=== PATIENT | female | born 1955 | race Caucasian/White ===

== ENCOUNTER → 2019-12-10 10:36 | Outpatient (CLI) | payer BC, SELFPAY ==
--- NOTE | ~2019-12-10 | US_ITS ---
EXAMINATION: US venous doppler LE RT DATE: 12/10/2019 10:53 INDICATION: Right lower limb pain. TECHNIQUE: Grayscale ultrasound images without and with compression and Doppler ultrasound images of the right lower extremity veins were obtained. COMPARISON: Ultrasound 08/02/2011 FINDINGS: The visualized portions of right common femoral vein, profunda (deep) femoral vein, femoral vein, pop liteal vein, peroneal veins, posterior tibial veins, and greater saphenous vein outflow are patent. IMPRESSION: 1. No deep venous thrombosis. Reviewed, dictated and finalized at location B.
== END ==
PROVIDERS: PCP Family Medicine; Visit Provider Nurse Practitioner Family
DX: M79.606 Pain in leg, unspecified (principal); M79.89 Other specified soft tissue disorders
CPT/HCPCS: 93971

== ENCOUNTER → 2020-09-12 06:31 | Outpatient (CLI) | payer MEDICARE, SELFPAY ==
[2020-09-12 20:07] LABS: SARS-CoV-2 RNA PCR Negative
== END ==
PROVIDERS: PCP Family Medicine; Visit Provider Family Medicine
DX: R09.89 Other specified symptoms and signs involving the circulatory and respiratory systems (principal); Z20.822 Contact with and (suspected) exposure to COVID-19
CPT/HCPCS: C9803; U0003; U0005

== ENCOUNTER 2020-09-24 11:25 | Emergency (ER) | payer MEDICARE, SELFPAY ==
--- NOTE | 2020-09-24 11:41 | ED.EXTPRO ---
HPI - Extremity Problem General Chief complaint: Extremity Problem,Nontraumatic Stated complaint: right leg Time Seen by Provider: 09/24/20 11:41 Source: patient Mode of arrival: ambulatory Limitations: no limitations History of Present Illness HPI Narrative: Anjali Betts is a 65 yo female with a PMH hypertension, fibromyalgia, GERD, high cholesterol, [facility] because of right leg pain that started heel and goes up to her thigh that she believes is related to the course of Levaquin that she is put on for bronchitis. Bilateral foot swelling that is chronic. States it started after completing Levaquin prescription Related Data Home Medications Medication Instructions Recorded Confirmed milnacipran [Savella] 25 mg TID 09/24/20 09/24/20 Allergies Allergy/AdvReac Type Severity Reaction Status Date / Time Cephalosporins Allergy Mild Rash Verified 09/12/20 09:15 Penicillins Allergy Mild RASH Verified 09/12/20 09:15 amoxicillin Allergy Unknown Unknown Verified 09/12/20 09:15 celecoxib Allergy Unknown Unknown Verified 09/12/20 09:15 clindamycin Allergy Unknown Unknown Verified 09/12/20 09:15 erythromycin base Allergy Unknown Unknown Verified 09/12/20 09:15 indomethacin Allergy Unknown Unknown Verified 09/12/20 09:15 iodine Allergy Unknown Unknown Verified 09/12/20 09:15 Sulfa (Sulfonamide Allergy Unknown Unknown Verified 09/12/20 09:15 Antibiotics) sulfanilamide Allergy Unknown Unknown Verified 09/12/20 09:15 topiramate Allergy Unknown Confusion Verified 09/12/20 09:15 CEFONICID SODIUM Allergy Severe SOB, Uncoded 09/12/20 09:15 FAINTING, JACQUELINE Contrast Media Allergy Mild MAKES HER Uncoded 09/12/20 09:15 SICK Review of Systems Review of Systems: Narrative: CONSTITUTIONAL: Denies fever, chills, sweats. EYES: Denies visual changes, redness, discharge. ENT: Denies rhinorrhea, congestion, sore throat, otalgia. CARDIOVASCULAR: Denies chest pain, palpitations, edema. RESPIRATORY: Denies dyspnea, wheezing, cough GASTROINTESTINAL: Denies abdominal pain, nausea, vomiting, diarrhea. GENITOURINARY: Denies dysuria, hematuria, abnormal discharge SKIN: Denies rash or itching. NEUROLOGIC: Denies numbness, or focal weakness. PSYCHIATRIC: Denies anxiety or depression. Pain in back of right leg that starts at the Achilles all the way up to the thigh that she assumes is related to her Levaquin use; she also has a tiny speck of a keloid looking skin lesion on the back of her right knee that she wanted looked at PMFSH Past Medical History Medical History Body mass index (BMI) of 40.1 to 44.9 in adult Essential hypertension Fibromyalgia Morbid (severe) obesity due to excess calories Family History Family History Mother Family history of elevated blood lipids Family history of diabetes mellitus in first degree relative Family history of heart disease in male family member before age 55 Family history of arthritis Acute myocardial infarction Father Family history of malignant melanoma Family history of heart disease in male family member before age 55 Family history of Parkinson's disease Sibling Acute myocardial infarction Diabetes mellitus Hypertension Social History Social History Second hand tobacco smoke exposure: Yes Alcohol intake: current Substance use: never Substance use type: does not use 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 There is no relevant family history pertinent to the presenting complaint. Exam Narrative: Exam Narrative: GENERAL: This is a well-nourished, well-developed patient, in mild distress. HEAD: normo
[2020-09-24 11:42] VITALS: BP 142/88; PULSE 93; RESP 20; TEMP 36.9; O2SAT 100
== END 2020-09-24 12:12 | disposition home or self-care (01) ==
PROVIDERS: Emergency Provider Nurse Practitioner; PCP Family Medicine
DX: M79.604 Pain in right leg (principal); I10 Essential (primary) hypertension; M79.7 Fibromyalgia; E66.01 Morbid (severe) obesity due to excess calories; Z68.41 Body mass index [BMI] 40.0-44.9, adult; I25.10 Atherosclerotic heart disease of native coronary artery without angina pectoris; E78.00 Pure hypercholesterolemia, unspecified; K21.9 Gastro-esophageal reflux disease without esophagitis
CPT/HCPCS: 99213; G0463

== ENCOUNTER → 2020-12-01 01:33 | Outpatient (CLI) | payer MEDICARE, SELFPAY ==
[2020-12-02 00:16] LABS: SARS-CoV-2 RNA PCR Negative
== END ==
PROVIDERS: PCP Family Medicine; Visit Provider Nurse Practitioner Family
DX: Z20.822 Contact with and (suspected) exposure to COVID-19 (principal); R09.89 Other specified symptoms and signs involving the circulatory and respiratory systems
CPT/HCPCS: C9803; U0003; U0005

== ENCOUNTER 2021-03-21 11:13 | Emergency (ER) | payer MEDICARE, SELFPAY ==
[2021-03-21] VITALS (23 sets, daily range): BP systolic 119–161; BP diastolic 71–94; PULSE 78–89; RESP 16–18; TEMP 36.6–36.8; O2SAT 97–100
--- NOTE | ~2021-03-21 | XR_ITS ---
EXAMINATION: XR chest 2V DATE: 03/21/2021 11:50 INDICATION: Chest heaviness. TECHNIQUE: Frontal and lateral views of the chest were obtained. COMPARISON: Chest 2 views 06/01/2018 FINDINGS: The chest demonstrates clear lungs without pneumonia, pleural effusion, or pneumothorax. Th e heart size is normal. Surgical clips in the right upper quadrant are likely from cholecystectomy. IMPRESSION: 1. No acute cardiopulmonary disease. Reviewed, dictated and finalized at location B. LIFE PHOTOGRAPHER
--- NOTE | 2021-03-21 11:17 | ECG_ITS ---
Measurements Intervals [place] Rate: 78 P: 23 OR: 168 QRS: -6 QRSD: 98 T: 4 QT: 371 QTc: 424 Interpretive Statements SINUS RHYTHM INCOMPLETE RIGHT BUNDLE BRANCH BLOCK DELAYED PRECORDIAL R/S TRANSITION LOW QRS VOLTAGE IN PRECORDIAL LEADS BORDERLINE ECG Electronically Signed On 03-21-2021 16:07:22 CONTENT ENGINEER by Portillo Valdes D.O.
[2021-03-21 11:43] LABS: Basophils Absolute Auto 0.1 K/mm3 (0.0-0.1); Basophils Percent Auto 0.6 % (0.2-1.2); Eosinophils Absolute Auto 0.1 K/mm3 (0-0.3); Eosinophils Percent Auto 1.1 % (0-4.4); Hematocrit 42.2 % (37.0-47.0); Immature Granulocyte Absolute 0.05 K/mm3 (0.00-0.031); Immature Granulocyte Percent A 0.4 % (0-0.5); Lymphocytes Absolute Auto 6.26 K/mm3 (0.9-3.2); Lymphocytes Percent Auto 52.6 % (18.3-44.2); Mean Corpuscular HGB Conc 33.2 g/dl (32-36); Mean Corpuscular Hemoglobin 29.2 pg (26-34); Mean Corpuscular Volume 87.9 fl (80-100); Mean Platelet Volume 8.8 fl (7.4-10.4); Monocytes Absolute Auto 0.8 K/mm3 (0.1-0.6); Monocytes Percent Auto 6.5 % (2.6-8.5); Neutrophils Absolute Auto 4.6 K/mm3 (1.3-6.7); Neutrophils Percent Auto 38.8 % (45.5-73.1); Platelet Count Result 382 k/mm3 (150-375); Red Cell Distribution Width 12.9 % (11.5-14.5); White Blood Count 11.9 K/mm3 (4.5-10.0)
[2021-03-21 11:55] LABS: Alanine Aminotransferase 24 U/L (4-35); Albumin Level 4.5 g/dL (3.5-5.1); Alkaline Phosphatase 82 U/L (38-126); Anion Gap 10 mmol/L (8-16); Aspartate Amino Transferase 27 U/L (14-36); Bilirubin,Total 0.7 mg/dL (0.2-1.3); Blood Urea Nitrogen 18 mg/dL (7-17); Calcium 9.6 mg/dL (8.4-10.2); Carbon Dioxide 25 mmol/L (22-30); Chloride 100 mmol/L (98-107); Estimated Glomerular Filt Rate > 60; Glucose 150 mg/dL (65-110); INR 0.9; Lipase 166 U/L (23-300); Potassium 4.2 mmol/L (3.4-5.0); Prothrombin Time 11.7 Seconds (11.1-14.7); Sodium 135 mmol/L (137-145)
[2021-03-21 11:56] LABS: Partial Thromboplastin Time 29.1 SECONDS (22.3-36.8)
[2021-03-21 12:07] LABS: Troponin I < 0.012 ng/mL (0.000-0.034)
--- NOTE | 2021-03-21 12:49 | ED.GENADULT ---
HPI - General Adult General Chief complaint: Chest Pain Stated complaint: chest heaviness, high bp Time Seen by Provider: 03/21/21 12:13 Source: patient and RN notes reviewed History of Present Illness HPI narrative: Patient is a 66 y/o female complaining of mild chest tightness since yesterday. She states that her tightness in located in mid sternal area with some radiation to her back. There is no known alleviating or exacerbating factor. She has no cough, SOB, fever or leg swelling. She has been having right shoulder pain with radiation to right arm for 1 week. She was seen by her PCP 1 week for shoulder/arm pain and given steroids. She had appointment today and was note to hypertension with SBP in 180s in office. She was then sent to ED for further evaluation. Related Data Allergies Allergy/AdvReac Type Severity Reaction Status Date / Time Penicillins Allergy Mild RASH Verified 03/21/21 12:36 amoxicillin Allergy Unknown Unknown Verified 03/21/21 12:36 celecoxib Allergy Unknown Unknown Verified 03/21/21 12:36 clindamycin Allergy Unknown Unknown Verified 03/21/21 12:36 erythromycin base Allergy Unknown Unknown Verified 03/21/21 12:36 indomethacin Allergy Unknown Unknown Verified 03/21/21 12:36 iodine Allergy Unknown Unknown Verified 03/21/21 12:36 Sulfa (Sulfonamide Allergy Unknown Unknown Verified 03/21/21 12:36 Antibiotics) sulfanilamide Allergy Unknown Unknown Verified 03/21/21 12:36 topiramate Allergy Unknown Confusion Verified 03/21/21 12:36 ciprofloxacin [From Cipro] AdvReac Severe tendonopath Verified 03/21/21 12:36 y levofloxacin AdvReac Severe tendonopath Verified 03/21/21 12:36 y CEFONICID SODIUM Allergy Severe SOB, Uncoded 03/21/21 12:36 FAINTING, JACQUELINE Contrast Media Allergy Mild MAKES HER Uncoded 03/21/21 12:36 SICK Review of Systems Constitutional: Constitutional: Denies chills, Denies fever(s), Denies headache(s) and Denies weakness Eyes: Eyes: Denies blurry vision ENT: Denies headache(s) and Denies neck pain Cardiovascular: Cardiovascular: Reports chest pain and Denies dyspnea Respiratory: Respiratory: Denies cough and Denies dyspnea Gastrointestinal: Gastrointestinal: Denies abdominal pain, Denies diarrhea, Denies nausea and Denies vomiting Genitourinary: Genitourinary: Denies hematuria and Denies dysuria Musculoskeletal: Musculoskeletal: Reports as per HPI, Denies back pain, Denies neck pain and Reports other (right shoulder pain and arm pain) Neurologic: Denies headache(s) and Denies weakness PMFSH Past Medical History Medical History Body mass index (BMI) of 40.1 to 44.9 in adult Essential hypertension Fibromyalgia Morbid (severe) obesity due to excess calories Family History Family History Mother Family history of elevated blood lipids Family history of diabetes mellitus in first degree relative Family history of heart disease in male family member before age 55 Family history of arthritis Acute myocardial infarction Father Family history of malignant melanoma Family history of heart disease in male family member before age 55 Family history of Parkinson's disease Sibling Acute myocardial infarction Diabetes mellitus Hypertension Social History Social History Smoking status: Never smoker Second hand tobacco smoke exposure: Yes Alcohol intake: current Substance use: never Substance use type: does not use 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 Patient feels well. She has no chest pain at this time. I offered patient possible admission for observation and further work up. She declined. She wants to be discharged and follow up with her PCP for outpatien
--- NOTE | 2021-03-21 13:05 | PC.NURSE ---
Called lab to add on D-Dimer
[2021-03-21 13:22] LABS: D Dimer 0.21 ug/mL (<0.48)
[2021-03-21 14:57] LABS: Troponin I < 0.012 ng/mL (0.000-0.034)
== END 2021-03-21 16:10 | disposition home or self-care (01) ==
PROVIDERS: Emergency Medicine; Emergency Provider Emergency Medicine; PCP Family Medicine
DX: R07.89 Other chest pain (principal); I10 Essential (primary) hypertension; M79.7 Fibromyalgia; E66.01 Morbid (severe) obesity due to excess calories; Z68.42 Body mass index [BMI] 45.0-49.9, adult; Z77.22 Contact with and (suspected) exposure to environmental tobacco smoke (acute) (chronic); I45.10 Unspecified right bundle-branch block
CPT/HCPCS: 36415; 71046; 80053; 83690; 84484; 85025; 85380; 85610; 85730; 93005; 99284

== ENCOUNTER → 2021-03-26 11:12 | Outpatient (CLI) | payer MEDICARE, SELFPAY ==
--- NOTE | ~2021-03-26 | XR_ITS ---
EXAMINATION: XR_CERV2-3V_CR DATE: 03/26/2021 11:38 INDICATION: Anesthesia of skin. Right upper limb pain. TECHNIQUE: 3 views of cervical spine were obtained. COMPARISON: None. FINDINGS: There is 11 degrees levoscoliosis of cervicothoracic spine. There is 2 mm anterolisthesis o f C5 on C6. Vertebral body heights are normal. There is interbody fusion at C4-C5. There is mildly de creased disc height at C3-C4, C5-C6, and C6-C7. There is multilevel facet joint osteoarthritis, sever e bilaterally at C5-C6 and C6-C7. There is mild central canal stenosis at C3-C4, C4-C5, and C5-C6. No prevertebral soft tissue swelling. IMPRESSION: 1. Moderate cervical spondylosis. 2. Cervicothoracic levoscoliosis. Reviewed, dictated and finalized at location A. WINDER
== END ==
PROVIDERS: PCP Family Medicine; Visit Provider Physician Assistant Medical
DX: R20.0 Anesthesia of skin (principal); R20.2 Paresthesia of skin; M47.892 Other spondylosis, cervical region
CPT/HCPCS: 72040

== ENCOUNTER 2022-04-11 01:15 | Day surgery (SDC) | payer MEDICARE, SELFPAY ==
[2022-03-29 15:31] VITALS: BMI 42.3
--- NOTE | 2022-04-11 09:10 | WPDANESEPPF ---
Anes - Initial Pre Proc Eval Procedure: Operation Date: 04/11/22 11:30 Proposed Procedures p Screening Colonoscopy - Maksim Mireles MD Date/Time: 04/11/22 09:10 Surgeon: Maksim Mireles MD Pre Op Diagnosis: neoplasm screening Patient Data Age: 67 Gender: F Height: 1.5 m Weight: 95 kg Allergies Allergy/AdvReac Type Severity Reaction Status Date / Time Penicillins Allergy Mild RASH Verified 04/11/22 10:28 amoxicillin Allergy Unknown Unknown Verified 04/11/22 10:28 cefonicid Allergy Unknown Unknown Verified 04/11/22 10:28 celecoxib Allergy Unknown Unknown Verified 04/11/22 10:28 clindamycin Allergy Unknown Unknown Verified 04/11/22 10:28 erythromycin base Allergy Unknown Unknown Verified 04/11/22 10:28 indomethacin Allergy Unknown Unknown Verified 04/11/22 10:28 Iodinated Contrast Media Allergy Unknown Unknown Verified 04/11/22 10:28 iodine Allergy Unknown Unknown Verified 04/11/22 10:28 Sulfa (Sulfonamide Allergy Unknown Unknown Verified 04/11/22 10:28 Antibiotics) sulfanilamide Allergy Unknown Unknown Verified 04/11/22 10:28 topiramate Allergy Unknown Confusion Verified 04/11/22 10:28 ciprofloxacin [From Cipro] AdvReac Severe tendonopath Verified 04/11/22 10:28 y levofloxacin AdvReac Severe tendonopath Verified 04/11/22 10:28 y Home Medications Medication Instructions Recorded Confirmed Type omeprazole magnesium 20 mg 20 mg PO BID #180 caps 08/31/21 03/29/22 Rx capsule,delayed release (Acid Tag Stringer (omeprazole)) blood-glucose meter (Accu-Chek #1 ea 10/01/21 02/25/22 Rx Emilee Plus Meter) metoprolol succinate 100 mg 200 mg PO DAILY #180 tabs 12/11/21 03/29/22 Rx tablet,extended release 24 hr rosuvastatin 40 mg tablet (Crestor) 40 mg PO DAILY #90 tabs 12/11/21 03/29/22 Rx amlodipine 5 mg tablet (Norvasc) 5 mg PO DAILY #90 tabs 02/19/22 03/29/22 Rx blood sugar diagnostic (Accu-Chek #100 ea 02/25/22 02/25/22 Rx Emilee Plus test strips) empagliflozin 10 mg tablet 10 mg PO DAILY #90 tabs 02/25/22 03/29/22 Rx (Jardiance) lancets (Accu-Chek Softclix #100 ea 02/25/22 02/25/22 Rx Lancets) irbesartan 300 mg tablet 300 mg PO DAILY #90 tabs 04/04/22 04/11/22 Rx nabumetone 500 mg tablet 500 mg PO BID #180 tabs 04/04/22 04/11/22 Rx Patient hx anesthesia problems: none Family hx anesthesia problems: none Results Review: All pre-operative results and documents have been reviewed as part of the pre-operative evaluation. [facility] Past Medical History Medical History (Updated 04/11/22 @ 09:12 by Allen Summers MD) Anxiety Arthritis of both knees BMI 40.0-44.9, adult Body mass index (BMI) of 40.1 to 44.9 in adult Diabetes Essential hypertension Fibromyalgia Fibromyalgia Fibromyalgia Gastroesophageal reflux disease Morbid (severe) obesity due to excess calories Myocarditis Reactive airway disease Type 2 diabetes mellitus without complication Family History Family History Mother Family history of elevated blood lipids Family history of diabetes mellitus in first degree relative Family history of heart disease in male family member before age 55 Family history of arthritis Acute myocardial infarction Father Family history of malignant melanoma Family history of heart disease in male family member before age 55 Family history of Parkinson's disease Sibling Acute myocardial infarction Diabetes mellitus Hypertension Social History Social History Smoking status: Never smoker Second hand tobacco smoke exposure: Yes Alcohol intake: current Drinks per week: 0 Alcohol use details: seldom Substance use: never Substance use type: does not use Living arrangements: with family 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
[2022-04-11 10:30] VITALS: BP 147/82; PULSE 64; RESP 20; TEMP 36.4; O2SAT 100
[2022-04-11] MEDS: LACTATED RINGERS 1,000 ML 150 ML IV CONT (10:39)
[2022-04-11 10:47] LABS: Glucose Point of Care 105 mg/dl (65-105)
--- NOTE | 2022-04-11 11:05 | PM.HPGS ---
History of Present Illness History of Present Illness Consent: Risks, benefits, and alternatives have been discussed and questions answered. Patient agrees to proceed with procedure. Chief complaint: neoplasm screening Narrative: Anjali Betts is a 67 year old female Presents for screening colonoscopy. Patient's current weight appetite and bowel movements are normal. Patient denies abdominal pain. She has had no bleeding. It has been sometime since last screening exam. Review of Systems Review of Systems: Review of systems noncontributory. [facility] Past Medical History Medical History (Updated 04/11/22 @ 11:06 by Maksim Mireles MD) Anxiety Arthritis of both knees BMI 40.0-44.9, adult Body mass index (BMI) of 40.1 to 44.9 in adult Diabetes Essential hypertension Fibromyalgia Fibromyalgia Fibromyalgia Gastroesophageal reflux disease Morbid (severe) obesity due to excess calories Myocarditis Reactive airway disease Type 2 diabetes mellitus without complication Family History Family History Mother Family history of elevated blood lipids Family history of diabetes mellitus in first degree relative Family history of heart disease in male family member before age 55 Family history of arthritis Acute myocardial infarction Father Family history of malignant melanoma Family history of heart disease in male family member before age 55 Family history of Parkinson's disease Sibling Acute myocardial infarction Diabetes mellitus Hypertension Social History Social History Smoking status: Never smoker Second hand tobacco smoke exposure: Yes Alcohol intake: current Drinks per week: 0 Alcohol use details: seldom Substance use: never Substance use type: does not use Living arrangements: with family 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 Gender identity (if verbalized by the patient): Female Sexual Orientation (if Verbalized by the Patient): Straight or Heterosexual Spiritual care concerns: No Meds Home Medications and Allergies Home Medications Medication Instructions Recorded Confirmed Type omeprazole magnesium 20 mg 20 mg PO BID #180 caps 08/31/21 03/29/22 Rx capsule,delayed release (Acid Co Founder And President (omeprazole)) blood-glucose meter (Accu-Chek #1 ea 10/01/21 02/25/22 Rx Emilee Plus Meter) metoprolol succinate 100 mg 200 mg PO DAILY #180 tabs 12/11/21 03/29/22 Rx tablet,extended release 24 hr rosuvastatin 40 mg tablet (Crestor) 40 mg PO DAILY #90 tabs 12/11/21 03/29/22 Rx amlodipine 5 mg tablet (Norvasc) 5 mg PO DAILY #90 tabs 02/19/22 03/29/22 Rx blood sugar diagnostic (Accu-Chek #100 ea 02/25/22 02/25/22 Rx Emilee Plus test strips) empagliflozin 10 mg tablet 10 mg PO DAILY #90 tabs 02/25/22 03/29/22 Rx (Jardiance) lancets (Accu-Chek Softclix #100 ea 02/25/22 02/25/22 Rx Lancets) irbesartan 300 mg tablet 300 mg PO DAILY #90 tabs 04/04/22 04/11/22 Rx nabumetone 500 mg tablet 500 mg PO BID #180 tabs 04/04/22 04/11/22 Rx Allergies Allergy/AdvReac Type Severity Reaction Status Date / Time Penicillins Allergy Mild RASH Verified 04/11/22 10:28 amoxicillin Allergy Unknown Unknown Verified 04/11/22 10:28 cefonicid Allergy Unknown Unknown Verified 04/11/22 10:28 celecoxib Allergy Unknown Unknown Verified 04/11/22 10:28 clindamycin Allergy Unknown Unknown Verified 04/11/22 10:28 erythromycin base Allergy Unknown Unknown Verified 04/11/22 10:28 indomethacin Allergy Unknown Unknown Verified 04/11/22 10:28 Iodinated Contrast Media Allergy Unknown Unknown Verified 04/11/22 10:28 iodine Allergy Unknown Unknown Verified 04/11/22 10:28 Sulfa (Sulfonamide Allergy Unknown Unknown Verified 04/11/22 10:28 Antibiotics) sulfanilamide Allergy Unknown Unknown Verified 04/11/22 10:28 topiramate Allergy Unknown Confusion Verified 04/11/22 10:28
[2022-04-11 11:33] VITALS: BP 99/59; PULSE 64; RESP 20; O2SAT 99
[2022-04-11 11:43] VITALS: BP 106/65; PULSE 59; RESP 20; O2SAT 99
[2022-04-11 11:53] VITALS: BP 121/67; PULSE 61; RESP 17; O2SAT 99
== END 2022-04-11 12:03 | disposition home or self-care (01) ==
PROVIDERS: PCP Family Medicine; Visit Provider Internal Medicine Gastroenterology
PROC: 0DJD8ZZ Inspection of Lower Intestinal Tract, Via Natural or Artificial Opening Endoscopic (ICD-10-PCS; CPT 45378; principal; 2022-04-11 11:30)
DX: Z12.11 Encounter for screening for malignant neoplasm of colon (principal); K64.8 Other hemorrhoids; K57.30 Diverticulosis of large intestine without perforation or abscess without bleeding; I10 Essential (primary) hypertension; E11.9 Type 2 diabetes mellitus without complications; M79.7 Fibromyalgia; K21.9 Gastro-esophageal reflux disease without esophagitis; J45.909 Unspecified asthma, uncomplicated; F41.9 Anxiety disorder, unspecified; E66.01 Morbid (severe) obesity due to excess calories; Z68.41 Body mass index [BMI] 40.0-44.9, adult; Z79.84 Long term (current) use of oral hypoglycemic drugs
CPT/HCPCS: G0121; 82948; J2370; J2704; J7120

== ENCOUNTER → 2022-09-11 09:14 | Outpatient (CLI) | payer MEDICARE, SELFPAY ==
--- NOTE | ~2022-09-11 | MMUS_ITS ---
EXAMINATION: MM diagnostic day LT w philip, US breast LT limited HISTORY: Pain of the upper left breast TECHNIQUE: Craniocaudal, mediolateral, and mediolateral oblique 3-D tomosynthesis images of the left breast were performed and synthetic 2-D images were generated. CAD analysis was submitted and interpr eted. High resolution limited left breast ultrasound was performed. COMPARISON: 02/14/2022, 01/09/2021, 11/15/2019 BREAST PARENCHYMAL COMPOSITION: There are scattered areas of fibroglandular density. FINDINGS: MAMMOGRAPHIC FINDINGS: No suspicious mass, calcification, or architectural distortion are identified to suggest malignancy. There has been no suspicious interval change. No mammographic correlate is identified for the patient 's reported left breast pain. ULTRASOUND: There is no evidence of focal abnormal solid or cystic mass in the vicinity of the patient's reported left breast pain. IMPRESSION: 1. No specific mammographic or sonographic correlate is identified for the patient's reported left br east pain. Further evaluation at this time should be based on clinical assessment. Continued follow-u p physical examination is recommended. 2. Routine screening mammography is recommended. BI-RADS Category 1: Negative Reviewed, dictated and finalized at location A. IMPRESSION: 1. No specific mammographic or sonographic correlate is identified for the charlotte ent's reported left breast pain. Further evaluation at this time should be base d on clinical assessment. Continued follow-up physical examination is recommend ed. 2. Routine screening mammography is recommended. BI-RADS Category 1: Negative
== END ==
PROVIDERS: PCP Family Medicine; Visit Provider Obstetrics & Gynecology
DX: N64.4 Mastodynia (principal); N60.02 Solitary cyst of left breast
CPT/HCPCS: 76642; 77061; 77065; G0279

== ENCOUNTER 2023-01-17 11:51 | Outpatient (CLI) | payer MEDICARE, SELFPAY ==
[2023-01-17 13:08] LABS: Toxigenic C. Diff NEGATIVE (NEGATIVE)
== END 2023-01-17 11:52 | disposition home or self-care (01) ==
LOC: ANHLAB 11:53
PROVIDERS: PCP Family Medicine; Visit Provider Nurse Practitioner Family
DX: R19.7 Diarrhea, unspecified (principal)
CPT/HCPCS: 87045; 87177; 87209; 87427; 87449; 87493

== ENCOUNTER 2023-01-29 12:22 | Outpatient (CLI) | payer MEDICARE, SELFPAY ==
--- NOTE | ~2023-01-29 | XR_ITS ---
EXAM: XR abdomen/kub 1V DATE: 01/29/2023 12:51 HISTORY: Diarrhea X a few months . COMPARISON: None available. FINDINGS: Clear lung bases. Cholecystectomy clips. Normal bowel gas pattern. Enlarged liver. Pelvic phleboliths. Lumbar scoliosis. Moderate lumbar degenerative disc disease. Mild bilateral hip osteoart hritis. IMPRESSION: Hepatomegaly. No radiographic evidence of obstruction or ileus. Reviewed, dictated and finalized at location K.
== END 2023-01-29 12:23 | disposition home or self-care (01) ==
PROVIDERS: PCP Family Medicine; Visit Provider Nurse Practitioner Family
DX: R19.7 Diarrhea, unspecified (principal)
CPT/HCPCS: 74018

== ENCOUNTER 2023-02-07 11:10 | Outpatient (CLI) | payer MEDICARE, SELFPAY ==
--- NOTE | ~2023-02-07 | XR_ITS ---
Clinical Indication: Chest pressure PA and lateral views of the chest: Comparison: 03/21/2021 Findings: The lungs are clear, without evidence of focal consolidation or pleural effusion. Cardiome diastinal silhouette is within normal limits. Bones and soft tissues are unremarkable. Impression: Normal chest. Reviewed, dictated and finalized at location . Impression: Normal chest.
== END 2023-02-07 11:11 | disposition home or self-care (01) ==
LOC: ANHIMG 11:14
PROVIDERS: PCP Family Medicine; Visit Provider Nurse Practitioner Family
DX: R05.1 Acute cough (principal)
CPT/HCPCS: 71046

== ENCOUNTER → 2023-02-13 10:44 | Outpatient (CLI) | payer MEDICARE, SELFPAY ==
--- NOTE | ~2023-02-13 | US_ITS ---
US abdomen limited INDICATION: Hepatomegaly. PROCEDURE: Realtime right upper abdominal ultrasound. COMPARISON: No prior studies for comparison. FINDINGS: The pancreas is normal without focal mass or pancreatic ductal dilation. Liver echotexture is normal without focal mass or intrahepatic biliary dilatation. Liver is enlarged. There is normal directional flow in the portal vein. Gallbladder is surgically absent. Common bile duct measures 5 mm. No sonographic Ruvalcaba's sign. IMPRESSION: 1: Hepatomegaly. Reviewed, dictated and finalized at location A. IMPRESSION: 1: Hepatomegaly.
== END ==
PROVIDERS: PCP Family Medicine; Visit Provider Nurse Practitioner Family
DX: R16.0 Hepatomegaly, not elsewhere classified (principal)
CPT/HCPCS: 76705

== ENCOUNTER 2023-04-07 11:16 | Day surgery (SDC) | payer MEDICARE, SELFPAY ==
[2023-03-05 12:53] VITALS: BMI 38.5
--- NOTE | 2023-04-07 12:10 | PM.HPGS ---
History of Present Illness History of Present Illness Consent: Risks, benefits, and alternatives have been discussed and questions answered. Patient agrees to proceed with procedure. Chief complaint: Epigastric Pain, Gerd without Esophagitis Narrative: Anjali Betts is a 68 year old female Presents for EGD. Patient has episodes of forceful vomiting and epigastric pain. Symptoms are rather intense that occur every several months. Perhaps 3 or 4 times a year patient denies any bleeding. She is currently being treated for underlying acid reflux. Because of intermittent severe episodes of vomiting an EGD to. Patient denies any dysphagia. She has no weight loss. Recent colonoscopy was performed for screening was unremarkable. Patient presents today for EGD. Currently followed by nurse practitioner in the GI office. Review of Systems Review of Systems: Review of systems noncontributory. [facility] Past Medical History Medical History Anxiety Arthritis of both knees BMI 37.0-37.9, adult BMI 38.0-38.9,adult BMI 39.0-39.9,adult BMI 40.0-44.9, adult Body mass index (BMI) of 40.1 to 44.9 in adult COVID Diabetes Essential hypertension Fibromyalgia Fibromyalgia Gastroesophageal reflux disease Morbid (severe) obesity due to excess calories Myocarditis Reactive airway disease Type 2 diabetes mellitus without complication Surgical History Surgical History (Updated 02/26/23 @ 14:38 by JANE Alvarado) H/O breast augmentation H/O knee surgery Family History Family History Mother Family history of elevated blood lipids Family history of diabetes mellitus in first degree relative Family history of heart disease in male family member before age 55 Family history of arthritis Acute myocardial infarction Father Family history of malignant melanoma Family history of heart disease in male family member before age 55 Family history of Parkinson's disease Sibling Acute myocardial infarction Diabetes mellitus Hypertension Social History Social History (Updated 02/26/23 @ 14:40 by JANE Alvarado) Smoking status: Never smoker Second hand tobacco smoke exposure: Yes Alcohol intake: current Alcohol use details: seldom Substance use: never Substance use type: does not use Lack of Transportation: No Lack of Food: Never True Current Housing: I Have Housing Concerned About Future Housing: No Difficulty Paying Gas/Electric Bills: No Difficulty Paying for Meds: No Currently Unemployed: No Education: High School Diploma/GED Difficulty w/ Childcare or Family Care: No Living arrangements: with family Occupation/Education: retired 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 Gender identity (if verbalized by the patient): Female Sexual Orientation (if Verbalized by the Patient): Straight or Heterosexual Spiritual care concerns: No Meds Home Medications and Allergies Home Medications Medication Instructions Recorded Confirmed Type blood-glucose meter (Accu-Chek #1 ea 10/01/21 02/26/23 Rx Emilee Plus Meter) empagliflozin 10 mg tablet 10 mg PO DAILY #90 tabs 08/26/22 03/25/23 Rx (Jardiance) lancets (Accu-Chek Softclix #100 ea 09/02/22 02/26/23 Rx Lancets) blood sugar diagnostic (Accu-Chek #100 ea 09/05/22 02/26/23 Rx Guide test strips) omeprazole 40 mg capsule,delayed 40 mg PO BID #60 caps 12/16/22 03/25/23 Rx release amlodipine 5 mg tablet (Norvasc) 5 mg PO DAILY #90 tabs 02/09/23 03/25/23 Rx irbesartan 300 mg tablet 300 mg PO DAILY #90 tabs 02/09/23 03/25/23 Rx metoprolol succinate 100 mg 200 mg PO DAILY #180 tabs 02/09/23 03/25/23 Rx tablet,extended release 24 hr rosuvastatin 40 mg tablet (Crestor) 40 mg PO DAILY #90 tabs 02/09/23 03/25/23 Rx Allergies Allergy/AdvReac Type Severity Reaction Status Date
[2023-04-07 12:13] VITALS: BP 140/91; PULSE 69; RESP 16; TEMP 37.2; O2SAT 100
[2023-04-07] MEDS: LACTATED RINGERS 1,000 ML 150 ML IV CONT (12:27)
--- NOTE | 2023-04-07 13:05 | WPDANESEPPF ---
Anes - Initial Pre Proc Eval Procedure: Operation Date: 04/07/23 13:30 Proposed Procedures p Esophagogastroduodenoscopy - Maksim Mireles MD Date/Time: 04/07/23 13:05 Surgeon: Maksim Mireles MD Pre Op Diagnosis: Epigastric Pain, Gerd without Esophagitis Patient Data Age: 68 Gender: F Height: 1.5 m Weight: 84.4 kg Last Vital Signs Temp 37.2 C 04/07/23 12:13 Pulse 69 04/07/23 12:13 Resp 16 04/07/23 12:13 BP 140/91 H 04/07/23 12:13 Pulse Ox 100 04/07/23 12:13 O2 Del Method Room Air 04/07/23 12:13 Allergies Allergy/AdvReac Type Severity Reaction Status Date / Time metronidazole Allergy Intermediate Hives Verified 04/07/23 12:08 Penicillins Allergy Mild RASH Verified 04/07/23 12:08 amoxicillin Allergy Unknown Unknown Verified 04/07/23 12:08 cefonicid Allergy Unknown Unknown Verified 04/07/23 12:08 celecoxib Allergy Unknown Unknown Verified 04/07/23 12:08 clindamycin Allergy Unknown Unknown Verified 04/07/23 12:08 erythromycin base Allergy Unknown Unknown Verified 04/07/23 12:08 indomethacin Allergy Unknown Unknown Verified 04/07/23 12:08 Iodinated Contrast Media Allergy Unknown Unknown Verified 04/07/23 12:08 iodine Allergy Unknown Unknown Verified 04/07/23 12:08 Sulfa (Sulfonamide Allergy Unknown Unknown Verified 04/07/23 12:08 Antibiotics) sulfanilamide Allergy Unknown Unknown Verified 04/07/23 12:08 topiramate Allergy Unknown Confusion Verified 04/07/23 12:08 ciprofloxacin [From Cipro] AdvReac Severe tendonopath Verified 04/07/23 12:08 y levofloxacin AdvReac Severe tendonopath Verified 04/07/23 12:08 y Home Medications Medication Instructions Recorded Confirmed Type blood-glucose meter (Accu-Chek #1 ea 10/01/21 02/26/23 Rx Emilee Plus Meter) empagliflozin 10 mg tablet 10 mg PO DAILY #90 tabs 08/26/22 03/25/23 Rx (Jardiance) lancets (Accu-Chek Softclix #100 ea 09/02/22 02/26/23 Rx Lancets) blood sugar diagnostic (Accu-Chek #100 ea 09/05/22 02/26/23 Rx Guide test strips) omeprazole 40 mg capsule,delayed 40 mg PO BID #60 caps 12/16/22 03/25/23 Rx release amlodipine 5 mg tablet (Norvasc) 5 mg PO DAILY #90 tabs 02/09/23 03/25/23 Rx irbesartan 300 mg tablet 300 mg PO DAILY #90 tabs 02/09/23 03/25/23 Rx metoprolol succinate 100 mg 200 mg PO DAILY #180 tabs 02/09/23 03/25/23 Rx tablet,extended release 24 hr rosuvastatin 40 mg tablet (Crestor) 40 mg PO DAILY #90 tabs 02/09/23 03/25/23 Rx Patient hx anesthesia problems: none Family hx anesthesia problems: none Results Review: All pre-operative results and documents have been reviewed as part of the pre-operative evaluation. [facility] Past Medical History Medical History Anxiety Arthritis of both knees BMI 37.0-37.9, adult BMI 38.0-38.9,adult BMI 39.0-39.9,adult BMI 40.0-44.9, adult Body mass index (BMI) of 40.1 to 44.9 in adult COVID Diabetes Essential hypertension Fibromyalgia Fibromyalgia Gastroesophageal reflux disease Morbid (severe) obesity due to excess calories Myocarditis Reactive airway disease Type 2 diabetes mellitus without complication Surgical History Surgical History H/O breast augmentation H/O knee surgery Family History Family History Mother Family history of elevated blood lipids Family history of diabetes mellitus in first degree relative Family history of heart disease in male family member before age 55 Family history of arthritis Acute myocardial infarction Father Family history of malignant melanoma Family history of heart disease in male family member before age 55 Family history of Parkinson's disease Sibling Acute myocardial infarction Diabetes mellitus Hypertension Social History Social History Smoking status: Never smoker
[2023-04-07 13:20] VITALS: BP 87/58; PULSE 59; RESP 16; O2SAT 100
--- NOTE | 2023-04-07 13:26 | WPDANESPN ---
Anes - Prog Note Post-Op Date/Time: 04/07/23 13:26 Cardiovascular status: normal Respiratory status: normal Airway patency: baseline Mental status: baseline Post-Op hydration status: normal Vital Signs: Last Vital Signs Temp 37.2 C 04/07/23 12:13 Pulse 69 04/07/23 12:13 Resp 16 04/07/23 12:13 BP 140/91 H 04/07/23 12:13 Pulse Ox 100 04/07/23 12:13 O2 Del Method Room Air 04/07/23 12:13 Pain Score (VAS): 0/10 Patient Feedback: Patient satisfied with anesthetic care.
[2023-04-07 13:30] VITALS: BP 106/72; PULSE 54; RESP 18; O2SAT 100
[2023-04-07 13:40] VITALS: BP 110/75; PULSE 60; RESP 18; O2SAT 100
== END 2023-04-07 13:50 | disposition home or self-care (01) ==
PROVIDERS: PCP Family Medicine; Visit Provider Internal Medicine Gastroenterology
PROC: 0DJ08ZZ Inspection of Upper Intestinal Tract, Via Natural or Artificial Opening Endoscopic (ICD-10-PCS; CPT 43235; principal; 2023-04-07 13:30)
DX: K21.9 Gastro-esophageal reflux disease without esophagitis (principal); R11.11 Vomiting without nausea
CPT/HCPCS: 43239

== ENCOUNTER 2023-09-09 13:45 | Outpatient (CLI) | payer MEDICARE, SELFPAY ==
--- NOTE | ~2023-09-09 | MR_ITS ---
EXAMINATION: MR breast BI wo/w con INDICATION: Left breast pain TECHNIQUE: Axial VIBRANT pre and dynamic post contrast, Sagittal VIBRANT post contrast, Axial T2 STIR ASSET COMPARISON: Mammography dated 09/11/2022 CONTRAST: Multihance, 18 cc BREAST COMPOSITION: Almost entirely fat FINDINGS: RIGHT BREAST: There is minimal background parenchymal enhancement. No abnormal enhancement is present after contrast administration. No pathologically enlarged axillary or internal mammary lymph nodes a re identified. LEFT BREAST: There is minimal background parenchymal enhancement. No abnormal enhancement is present after contrast administration. No pathologically enlarged axillary or internal mammary lymph nodes ar e identified. IMPRESSION: No evidence for malignancy. BI-RADS Category 1: Negative Reviewed, dictated and finalized at location .
== END 2023-09-09 13:46 | disposition home or self-care (01) ==
LOC: ANHIMG 13:46
PROVIDERS: PCP Family Medicine; Visit Provider Obstetrics & Gynecology
DX: R92.2 Inconclusive mammogram (principal); R92.30 Dense breasts, unspecified; N64.4 Mastodynia
CPT/HCPCS: 77049; A9577; C8908

== ENCOUNTER 2024-03-29 11:30 | Outpatient (CLI) | payer MEDICARE, SELFPAY ==
--- NOTE | ~2024-03-29 | XR_ITS ---
Cervical Spine: AP, lateral, open-mouth views Clinical History: Pain Findings: The normal lordotic curve is maintained. No acute fracture seen. There is minimal grade 1 a nterolisthesis of C5 over C6. There is severe degenerative disc narrowing at C4-C5. There is severe f acet arthropathy throughout the cervical spine. There is mild to moderate degenerative change at the remaining cervical levels. Pre-vertebral soft tissues are unremarkable. Impression: Advanced degenerative spondylosis, as above. Reviewed, dictated and finalized at location M. RNAL [facility] Impression: Advanced degenerative spondylosis, as above.
== END 2024-03-29 11:31 | disposition home or self-care (01) ==
PROVIDERS: PCP Family Medicine; Visit Provider Physician Assistant Medical
DX: M47.892 Other spondylosis, cervical region (principal)
CPT/HCPCS: 72040

== ENCOUNTER 2024-07-06 16:01 | Outpatient (CLI) | payer MEDICARE, SELFPAY ==
--- NOTE | ~2024-07-06 | MR_ITS ---
EXAMINATION: MR cervical spine wo con DATE: 07/06/2024 16:31 INDICATION: Neck pain. Right upper arm pain. TECHNIQUE: Magnetic resonance imaging (MRI) of the cervical spine was performed without intravenous c ontrast. COMPARISON: Cervical spine radiographs 03/29/2024 FINDINGS: There is 2 mm anterolisthesis of C5 on C6, C6 on C7, and C7 on T1. Vertebral body heights a re normal. There is moderately decreased disc height at C3-C4 with interbody fusion. There is severel y decreased disc height at C4-C5 with interbody fusion. There is moderately decreased disc height at C5-C6 and C6-C7. The spinal cord signal intensity is normal. The following disc levels are specifical ly discussed: C2-C3: There is a central extrusion. There is mild bilateral uncovertebral joint osteoarthritis. Ther e is mild right and severe left facet joint osteoarthritis. There is mild left neural foraminal steno sis. There is no central canal stenosis. C3-C4: The disc does not extend beyond the endplate margin. There is moderate right and mild left unc overtebral joint hypertrophy. There is ankylosis of the facet joints with mild hypertrophy. There is mild right neural foraminal stenosis. There is no central canal stenosis. C4-C5: The disc does not extend beyond the endplate margin. There is moderate bilateral uncovertebral joint hypertrophy. There is ankylosis of the facet joints with mild hypertrophy. There is mild bilat eral neural foraminal stenosis. There is no central canal stenosis. C5-C6: The disc is bulging. There is severe right and moderate left uncovertebral joint osteoarthriti s. There is severe bilateral facet joint osteoarthritis. There is mild bilateral neural foraminal briana nosis. There is mild central canal stenosis. C6-C7: The disc is bulging. There is severe bilateral uncovertebral joint osteoarthritis. There is se collin bilateral facet joint osteoarthritis. There is mild bilateral neural foraminal stenosis. There i s mild central canal stenosis. C7-T1: The disc does not extend beyond the endplate margin. There is no uncovertebral joint osteoarth ritis. There is severe bilateral facet joint osteoarthritis. There is mild bilateral neural foraminal stenosis. There is no central canal stenosis. IMPRESSION: 1. Moderate cervical spondylosis. 2. Anterior and posterior fusion at C3-C4 and C4-C5. Reviewed, dictated and finalized at location B.
== END 2024-07-06 16:02 | disposition home or self-care (01) ==
LOC: MICIMG 16:02
PROVIDERS: PCP Family Medicine; Visit Provider Physician Assistant Medical
DX: M43.02 Spondylolysis, cervical region (principal); G89.29 Other chronic pain; Z98.1 Arthrodesis status
CPT/HCPCS: 72141

== ENCOUNTER 2024-11-19 13:57 | Emergency (ER) | payer MEDICARE, SELFPAY ==
--- OUTSIDE RECORDS SUMMARY | 2024-11-19 14:01 | XMS_ITS | Encounter Summary ---
Author Organization [facility] Address [address] [place] [address] Care Team Providers Care Prepared Foods Associate Name Role Phone Marquise Schwab MD Primary Care Provider [phone] Marquise Schwab MD Primary Care Provider [phone] Marquise Schwab MD Primary Care Provider [phone] Marquise Schwab MD Unavailable [phone] Marquise Schwab MD Unavailable [phone] Encounter Details Date Type Department Care Team (Late [facility]) Description 12/18/2018 Lab Requisition [facility] DermPath Lab [address], [facility] [place] [id number] Aurelia Cowan MD [address] [place] [address] Social History Tobacco Use Types Packs/Day Years Used Date Smoking Tobacco: Never Assessed Comments Unknown Sex and Gender Information Value Date Recorded Sex Assigned at Not on file Legal Sex Female 9:27 AM CDT Gender Identity Not on file Sexual Orientation Not on file documented as of this encounter Plan of Treatment Not on file documented as of this encounter Procedures Procedure Name Priority Date/Time Associated Diagnosis Comments DERMATOPATH TECHNICAL REPORT Routine 12/17/2018 12:00 AM CDT documented in this encounter Results * DERMATOPATH TECHNICAL REPORT (12/17/2018 12:00 AM CDT) Case Report Dermatopathology Report Case: [id number] Authorizing Provider: Aurelia Cowan MD Collected: 12/17/2018 12:00 AM Ordering Location: [facility] DermPath Lab Received: 12/18/2018 05:30 AM Pathologist: Shin Steve MD Specimen: Skin, left lower lip 4:06 PM T DERMATOPATHOLOGY LABORATORY Addendum 1 At the request of the diagnosing physician, the technical component for GMS and MIB-1 was performed by [facility] Dermatopathology Laboratory. 4:06 PM T DERMATOPATHOLOGY LABORATORY Addendum electronically signed by Shin Steve MD on 12/22/2018 at 1606 CDT Clinical History SCC vs AK vs HSV 4:06 PM T DERMATOPATHOLOGY LABORATORY Gross Description Specimen A: Received is one formalin filled container labeled with the patient's name and designated left lower lip. The specimen consists of a shave biopsy measuring 3x3x5 mm. Jar 0. [facility] Dermatopathology [facility] performed the technical component only. 4:06 PM CDT DERMATOPATHOLOGY LABORATORY Embedded Images 4:06 PM T DERMATOPATHOLOGY LABORATORY DISCLAIMER An external and internal positive and negative controls are appropriate for the histochemical, immunohistochemical and immunofluorescence stain(s) in this case (if any), except where stated explicitly. The performance characteristics of the stain(s) cited in this report were developed and its performance characteristic determined by the Dermatopathology Laboratory at [facility], directed by Dr. Chloe Steve. These tests need not be, and therefore are not, approved by the [place] Food and Drug Administration. The tests are used for clinical purposes. 4:06 PM [facility] DERMATOPATHOLOGY LABORATORY at 1329 CDT Pathology/Cytolog y TISSUE SPECIMEN FROM SKIN / Unknown 12/17/2018 12/18/2018 5:30 AM CDT Aurelia Cowan MD LAB - PATHOLOGY/CYTOLOGY OR DERABLES Edited Result - Final DERMATOPATHOLOGY LABORATORY [facility] - Department of Dermatology [address] [place] [address] [address] [phone] documented in this encounter Visit Diagnoses Not on filedocumented in this encounter Care Teams Prepared Foods Associate Relationship Specialty Start Date End Date Marquise Schwab MD [address] [place] [phone] PCP - General 12/17/18 12/24/18 Marquise Schwab MD [address] [place] [phone] PCP - General 12/25/18 02/08/20 Marquise Schwab MD [address] [place] [phone] PCP - General 02/09/20 Marquise Schwab MD [address] [place] [address] 02/09/20 Marquise Schwab MD [address] [place] [address] 12/25/18 documented as of this encounter
--- OUTSIDE RECORDS SUMMARY | 2024-11-19 14:01 | XMS_ITS | Clinical Summary ---
Author Organization [facility] Address [address] [place] [address] Care Team Providers Care Surgery Nurse Name Role Phone Marquise Schwab MD Primary Care Provider [phone] Marquise Schwab MD Unavailable [phone] Marquise Schwab MD Unavailable [phone] Source Comments [facility],non-owned Affiliates and Associated Physician Practices is amultiple site organization consisting of ambulatory clinics and hospital sitesin [place], [place], [place] and [place]. This disclosure is being madepursuant to the Care Everywhere program and may not contain all information available regarding this patient. Last updated 18.[facility] Social History Tobacco Use Types Packs/Day Years Used Date Smoking Tobacco: Never Assessed Comments Unknown Sex and Gender Information Value Date Recorded Sex Assigned at Not on file Legal Sex Female 9:27 AM CDT Gender Identity Not on file Sexual Orientation Not on file Plan of Treatment Health Maintenance Due Date Last Done Comments BONE DENSITY TESTING 1955 COLOGUARD (AGES 45-75) - COL ON CA SCREENING 1955 COLON MONITORING 1955 COLONOSCOPY - COLON CA SCREENING 1955 CT COLONOGRAPHY - COLON CA SCREENING 1955 Colorectal Cancer Screening 1955 FIT - COLON CA SCREENING 1955 FLEX SIG - COLON CA SCREENING 1955 LIPID TESTING 1955 MAMMOGRAM 1955 HEPATITIS C SCREENING 03/03/1973 DTAP/TDAP/TD VACCINES (1 - Tdap) 1974 PNEUMOCOCCAL VACCINE 50+ (1 of 1 - PCV) 2005 ZOSTER VACCINE (1 of 2) 2005 COVID-19 VACCINE (2023-2 5 season) 2023 DEPRESSION SCREENING 04/28/2024 INFLUENZA VACCINE (#1) 2024 Respiratory Syncytial Virus (RSV) Vaccine Pt: or over 60 yrs (1 - 1-dose 75+ series) 2030 HEPATITIS B VACCINE Aged Out No longe r eligible based on patient's age to complete this topic HIB VACCINE Aged Out No longer eligi ble based on patient's age to complete this topic HPV VACCINE Aged Out No longer eligi ble based on patient's age to complete this topic MENINGOCOCCAL (Group B) VACC INE SHARED DECISION-MAKING Aged Out No longer eligibl e based on patient's age to complete this topic MENINGOCOCCAL GROUPS A/C/Y/W VACCINE Aged Out No longer eligible b ased on patient's age to complete this topic Insurance ANTHEM ANTHEM ANTHEM ANTHEM ANTHEM AETNA ANTHEM AETNA ANTHEM AETNA ANTHEM AETNA AETNA AETNA AETNA Care Teams Surgery Nurse Relationship Specialty Start Date End Date Marquise Schwab MD [address] [place] [address] [facility] - General 02/09/20 Mar[place] [address] 02/09/20 Marqu[place] [phone] 12/25/18
--- OUTSIDE RECORDS SUMMARY | 2024-11-19 14:02 | XMS_ITS | Clinical Summary ---
Author Organization [facility] Address [address] [place] [address] Care Team Providers Care Aerial Sprayer Name Role Phone Nat Degroot MD Unavailable [phone] Nat Degroot MD Unavailable [phone] Shira Mujica MD Primary Care Provider [phone] Allergies Active Allergy Reactions Criticality Noted Date Comments Amoxicillin Erythromycin Indomethacin Iodinated Contrast Media Sulfa (Sulfonamide Antibiotics) Active Problems Problem Noted Date Diagnosed Date Hypertension 12/28/2009 Hypercholesterolemia 12/28/2009 Surgical History Surgery Date Site/Laterality Comments EYE SURGERY Eye Surgery - (Added by TW Conv) [place] DELIVERY ONLY Section - (Added by TW Conv) [place] CHOLECYSTECTOMY Cholecystectomy - (Added by TW Conv) KNEE SURGERY Knee Surgery - (Added by TW Conv) KNEE SURGERY Knee Surgery - (Added by TW Conv) [place] BREAST REDUCTION Breast Surgery Reduction Procedure - (Added by TW Conv) Medical History Medical History Date Comments Personal history of other di seases of the circulatory system History of hypertension - (A dded by TW Conv) Family History Medical History Relation Name Comments Diabetes Other Diabetes Mellit us - (Added by TW Conv) Heart disease Other Heart Disease - (Added by TW Conv) Hypertension Other Hypertension - (Added by TW Conv) Melanoma Other Malignant Melan calli Of The Skin - (Added by TW Conv) Relation Name Status Comments Other Social History Tobacco Use Types Packs/Day Years Used Date Smoking Tobacco: Never Assessed Comments Unknown Sex and Gender Information Value Date Recorded Sex Assigned at Not on file Legal Sex Female 12:52 AM BEAM CARRIER HAULER PUSHER Gender Identity Not on file Sexual Orientation Not on file Obstetrics History Plan of Treatment Health Maintenance Due Date Last Done Comments Colon Cancer Screening-Colonoscopy 1955 Depression Screening 1955 Fall Risk Assessment 1955 Hepatitis C Screening 1955 Osteoporosis Screening-Bone Density Scan 1955 DTaP/Tdap/Td Vaccine (1 - Tdap) 1966 Hepatitis B Screening 1973 Pneumococcal vaccine 65+ (1 of 1 - PCV) 2005 Well Visit 65+ 2020 Influenza Vaccine (#1) 2024 9, 05/19/2018, 04/15/2016 Breast Cancer Screening-Mammogram 06/28/2025 06/28/2024, 06/11/2023, 02/14/2022, Additional history exists Zoster Vaccine Completed 10/05/2019, 01/27, 04/15/2016 Procedures Procedure Name Priority Date/Time Associated Diagnosis Comments SCREENING MAMMOGRAM BILATERAL W BERNARDINO Schedule Routine, Read Routine (OP Routine) 06/28/2024 11:28 AM BEAM CARRIER HAULER PUSHER Encounter for other screening for malignant neoplasm of breast Mastodynia Other chronic pain from Last 3 Months or Most Recently Relevant to Health Maintenance Results * Screening Mammogram Bilateral W Bernardino (06/28/2024 11:28 AM BEAM CARRIER HAULER PUSHER) Anatomical Region Laterality Modality Breast Bilateral Mammography Narrative 06/29/2024 8:17 AM BEAM CARRIER HAULER PUSHER Mammogram Technique: Bilateral Digital Breast Tomosynthesis, Bilateral C-view 2D Screening mammogram. Views obtained: bilateral craniocaudal and bilateral mediolateral oblique. Computer Aided Detection was performed. Mammogram Findings: The present examination has been compared to prior imaging studies performed at [facility] on 01/09/2021, 02/14/2022 and 06/11/2023. There are scattered areas of fibroglandular density. There is no suspicious abnormality in either breast. Impression: There is no mammographic evidence of malignancy. Annual screening mammography is recommended. OVERALL FINAL ASSESSMENT: BI-RADS CATEGORY 1: Negative. Procedure Note Isadora Samuel MD - 06/29/2024 Mammogram Technique: Bilateral Digital Breast Tomosynthesis, Bilateral C-view 2D Screening mammogram. Views obtained: bilateral craniocaudal and bilateral mediolateral oblique. Computer Aided Detection was performed. Mammogram Findings: The present examination has been compared to prior imaging studies performed at [facility] on 01/09/2021, 02/14/2022 and 06/11/2023. There are scattered areas of fibroglandular density. There is no suspicious abnormality in either breast. Impression: There is no mammographic evidence of malignancy. Annual screening mammography is recommended. OVERALL FINAL ASSESSMENT: BI-RADS CATEGORY 1: Negative. Shira Mujica MD IMG MAMMO PROCEDURES Final R esult from Last 3 Months or Most Recently Relevant to Health Maintenance Insurance [facility] AETNA MEDICARE [facility] MEDICARE ADVANTAGE [facility] MEDICARE ADVANTAGE Care Teams Aerial Sprayer Relationship Specialty Start Date End Date Nat Degroot MD [address] [facility] [address] [address] [place] [address] PCP - program manager Obstetrics and Gynecology 05/14/24 Shira Mujica MD [address] [place], [place] [phone] PCP - General General Surgery 06/28/24 Nat Degroot MD [address] [facility] [address] [place] [address] Referring Physician Obstetrics and Gynecology 02/14/22
--- OUTSIDE RECORDS SUMMARY | 2024-11-19 14:02 | XMS_ITS | Referral Summary ---
Author Organization [facility] Address [address] [place] [address] Care Team Providers Care Aerospace Manager Name Role Phone Nat Degroot MD Unavailable [phone] Nat Degroot MD Unavailable [phone] Shira Mujica MD Primary Care Provider [phone] Allergies Active Allergy Reactions Criticality Noted Date Comments Amoxicillin Erythromycin Indomethacin Iodinated Contrast Media Sulfa (Sulfonamide Antibiotics) Active Problems Problem Noted Date Diagnosed Date Hypertension 12/28/2009 Hypercholesterolemia 12/28/2009 Social History Tobacco Use Types Packs/Day Years Used Date Smoking Tobacco: Never Assessed Comments Unknown Sex and Gender Information Value Date Recorded Sex Assigned at Not on file Legal 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 Gender Identity Not on file Sexual Orientation Not on file Plan of Treatment Not on file Procedures Procedure Name Priority Date/Time Associated Diagnosis Comments SCREENING MAMMOGRAM BILATERAL W BERNARDINO Schedule Routine, Read Routine (OP Routine) 06/28/2024 11:28 AM BRAKE REPAIRER Encounter for other screening for malignant neoplasm of breast Mastodynia Other chronic pain from Last 3 Months or Most Recently Relevant to Health Maintenance Results * Screening Mammogram Bilateral W Bernard[place] (06/28/2024 11:28 AM BRAKE REPAIRER) Anatomical Region Laterality Modality Breast Bilateral Mammography Narrative 06/29/2024 8:17 AM BRAKE REPAIRER Mammogram Technique: Bilateral Digital Breast Tomosynthesis, Bilateral C-view 2D Screening mammogram. Views obtained: bilateral craniocaudal and bilateral mediolateral oblique. Computer Aided Detection was performed. Mammogram Findings: The present examination has been compared to prior imaging studies performed at [facility] on 01/09/2021, 02/14/2022 and 06/11/2023. There are [...] compared to prior imaging studies performed at [facility] on 01/09/2021, 02/14/2022 and 06/11/2023. There are scattered areas of fibroglandular density. There is no suspicious abnormality in either breast. Impression: There is no mammographic evidence of malignancy. Annual screening mammography is recommended. OVERALL FINAL ASSESSMENT: BI-RADS CATEGORY 1: Negative. Shira Mujica MD IMG MAMMO PROCEDURES Final R esult from Last 3 Months or Most Recently Relevant to Health Maintenance Insurance [facility] ACCESS Member Subscriber Plan / Payer (Ef fective 2017-Present) Name:Anjali Betts Relation to Subscriber:Self Name:Anjali Betts Payer ID:[id number] (NAIC) Type: V[employer] Dragon Address[address] [facility] [address] [address] Member Subscriber Plan / Payer (Ef fective 2020-Present) Name:Anjali Betts Member ID:[id number] Relation to Subscriber:Self Name:Anjali Betts Subscriber ID:[id number] Payer ID:[id number] (NAIC) Type:AETNA MEDICARE Address: [facility] [address] [place] [address] Care Teams Aerospace Manager Relationship Specialty Start Date End Date Nat Degroot MD [address] [address] [place] [address] PCP - lead generation representative Obstetrics and Gynecology 05/14/24 Shira Mujica MD [address] [place], [place] [id number] PCP - General General Surgery 06/28/24 Nat Degroot MD [address] [facility] [address] [place] [address] Referring Physician Obstetrics and Gynecology 02/14/22
--- OUTSIDE RECORDS SUMMARY | 2024-11-19 14:02 | XMS_ITS | Continuity of Care Document ---
Author Organization [facility] Address [address] [place] [address] Phone Care Team Providers Care Manager Van Name Role Phone Connie Leger PA-C Unavailable Unavailable Allergies, Adverse Reactions, Alerts Substance Reaction Status Criticality indomethacin Active No Information amoxicillin Unknown Active No Information sulfanilamide Unknown Active No Information erythromycin base Unknown Active No Informa tion Medications Medication Instructions Dosage Effective Dates (start - stop) Status Comments calcium 500 mg tablet - Active OMEPRAZOLE (unknown strength) Not Available - Active Multiple Vitamins tablet - Activ e Vitamin C 500 mg tablet - Active HYDROXYCHLOROQUINE SULFATE (unknown strength) Not Available - Active CRESTOR (unknown strength) Not Available - Active MELOXICAM (unknown strength) Not Available - Active TERAZOSIN HCL (unknown strength) Not Available - Active AVAPRO (unknown strength) Not Available - Active Procedures Procedure Date OFFICE/OUTPATIENT VISIT [facility] Advance Directives Directive Yes / No Effective Date File Name Resuscitation Not Answered N/A N/A Life Support Not Answered N/A N/A Intubation Not Answered N/A N/A Antibiotics Not Answered N/A N/A IV Fluid Support Not Answered N/A N/A Tube Feed Not Answered N/A N/A Other Directive N/A N/A WARNING:The information contained in this section is historical and is provided for information only and does not constitute a legal document or any assurance that the information is still accurate. Please verify the information with the zamora of the legal document before using it for clinical purposes. Encounters Encounter Description Practice Location Reason(s) For Visit Diagnoses Date Provider Providers Copied on Encounter OFFICE/OUTPA TIENT VISIT [facility], [address], [place], [address], [place] tel:[phone] [facility] Degenerative tear of medial meniscus of left kneeLower leg pain [address], [place], [place], [id number] . tel: [phone] Referring Provider: Marquise Menendez, [address], [place], [address]. [phone] Family History Family Member Type Diagnosis Age At Onset No Information Payers Payer name Insurance type Covered alliance party ID Authoriza tion(s) No Information Social History Type Description Quantity Date Captured Comments Alcohol Use Details Unknown Caffeine Use Details Unknown Tobacco Use Status No Information Smoking Status Never smoker Non-Smoking Tobacco Use Details : No Details Available : No Details Available Sex Female Vital Signs Date / Time: Height Weight BMI Pulse Rate Blood Pressure Temperature Respiratory Rate Body Surface Area Head Circumference Head Circ. Percentile Wt./Luis. Percentile BMI percentile Pulse Ox Inhaled Ox 2:45 PM 60.00 in 220.00 lbs 42.9 6 kg/m eter (2) 161/94 mm[Hg] Chief Complaint And Reason For Visit No Information Reason For Referral Reason For Referral No Information History Of Present Illness Encounter Date Complaint History Of Prese nt Illness No Information Functional Status Date Functional Assessmen t No Information Instructions Date Instruction Additional Infor mation No Information Assessments Type Assessment Date No Information Patient Care Teams Name Effective Dates (start - stop) Status Members No Information
--- OUTSIDE RECORDS SUMMARY | 2024-11-19 14:02 | XMS_ITS | Clinical Summary ---
Author Organization [facility] Address [address] [place] [address] Care Team Providers Care Administrative Volunteer Name Role Phone Marquise Schwab MD Primary Care Provider [phone] Active Problems Problem Noted Date Diagnosed Date Cervicalgia 04/05/2024 Pain in unspecified shoulder 03/29/2021 Right knee pain 03/19/2021 Osteoarthritis of both knees , unspecified osteoarthritis type 03/19/2021 Social History Tobacco Use Types Packs/Day Years Used Date Smoking Tobacco: Never Assessed Comments Unknown Sex and Gender Information Value Date Recorded Sex Assigned at Female 05/26/2024 8:25 AM COPYMAN Legal Sex Female 7:14 PM CDT Gender Identity Female 07/23/2021 3:17 PM CDT Sexual Orientation Straight 07/23/2021 3: 17 PM CDT Plan of Treatment Health Maintenance Due Date Last Done Comments Colorectal Cancer Screening Colonoscopy (10 Years) 1955 Hepatitis C 1973 DTaP, Tdap and Td Vaccines (1 - Tdap) 1974 Annual Medicare Wellness Visit 2020 Dexa Scan (General) 2020 Pneumococcal Vaccine: 50+ Years (2 of 2 - PPSV23) 01/03/2022 01/03/2021 COVID-19 Vaccine ( season) 2023 03/07/2021, 07/17/2020, 06/14/2020 Mammogram Screening 06/28/2026 06/28/2024, 06/11/2023, 02/14/2022, Additional history exists RSV Immunization or 60+ Years (1 - 1-dose 75+ series) 2030 Zoster Vaccines Completed 10/05/2019, 01/27, 04/15/2016 Meningococcal B Vaccine Aged Out No l onger eligible based on patient's age to complete this topic Meningococcal Vaccine Aged Out No delicia susan eligible based on patient's age to complete this topic RSV Immunizations Under 20 Months Aged Out No longer eligible based on patient's age to complete this topic Insurance [facility] Care Teams Administrative Volunteer Relationship Specialty Start Date End Date Marquise Schwab MD [address] [place] [address] PCP - General FAMILY PRACTICE 03/19/21
--- OUTSIDE RECORDS SUMMARY | 2024-11-19 14:02 | XMS_ITS | Data Portability ---
Author Organization [facility], [id number] [facility] Address [address] [place] [address] Assessment Encounter Date Assessment Date Assessment LastModified by Organization Details LastModified Time 10/18/2024 10/18/2024 Vaginal Itching: [id number] Not available 10/18/2024 13:01:04 Plan of Treatment Reminders Order Date Submit Date Provider Last Modified By Organization Details Last Modified Time Details Appointments ANNUAL- EST 15 2024 01:15P M CARLA DEJESUS MD Not available Not available Not available Lab None recorded. Referral None recorded. Procedures None recorded. Surgeries None recorded. Imaging None recorded. Medication Orders nystatin- triamcino lone 100,000 unit/gram -0.1 % topical ointment 2024 025 [facility], [address], [address], 10/18/2024 12:54:38 Patient TargetsNo targets recorded. Patient Instructions Encounter Date Encounter Id Patient Instructions Last Modified By Organization Details Last Modified Time 10/18/2024 [id number] HSV culture sent . Discussed rx and how to use. Call if sx do not improve. [email or web address] Not available 10/18/2024 14:08:42 Reason for Referral None Reported. 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 It is a real time trans cript ion-m ediat ed ampli ficat ion (TMA) , for the quali tativ e detec tion and diffe renti ation of herpe s simpl ex virus type 1 (HSV- 1) and type 2 (HSV- 2) messe nger RNA (mRNA ) and appro alla for clini rob- colle cted swab speci mens from anoge nital skin lesio ns. Perfo rmanc e ezra cteri stics of this assay in Urine and ThinP rep was deter mined by [employer] [facility], AFINOS d/b/a [employer] manning. A negat kaushik resul t does not exclu de the possi bilit y of infec tion, since very low level s of infec tion and sampl ing varia bilit y may cause a false negat kaushik resul t. This test is highl y sensi tive and speci fic, but rare false posit kaushik and false negat kaushik resul ts may occur . Resul ts of this test shoul d be inter prete d in conju nctio n with clini taqueria and labor atory findi ngs. This test is used for clini taqueria purpo ses. It shoul d not be regar ded as inves tigat ional or for [facility]. This labor atory is certi fied under the Clini taqueria Labor atory Impro vemen t Amend ments of 1987 (CLIA ) as quali fied to perfo rm high compl exity clini taqueria labor atory testi ng. Test perfo rmed by [employer] [facility], AFINOS, d/b/a Gregg manning, [address], [place] [address] , Pradeep Stevens ra, DO, Labor atory [facility]. Not Available [facility] ([facility]) [address], [place], [address], 10/20/2024 10:07:21 10/19/19 25 10/19/2024 HERPE S SIMPL EX VIRUS herpes simplex virus type 2 DNA NOT DETECT ED normal The Aptim a HSV 1 & 2 assay is inten ded for use as an aid in the diagn osis of HSV-1 and/o r HSV-2 infec tions in sympt omati c male and femal e patie nts and is indic ated for use on the Panth er syste m. It is a real time trans cript ion-m ediat ed ampli ficat ion (TMA) , for the quali tativ e detec tion and diffe renti ation of herpe s simpl ex virus type 1 (HSV- 1) and type 2 (HSV- 2) messe nger RNA (mRNA ) and appro alla for clini rob- colle cted swab speci mens from anoge nital skin lesio ns. Perfo rmanc e ezra cteri stics of this assay in Urine and ThinP rep was deter mined by [employer] [facility] [employer], AFINOS d/b/a Gregg manning. A negat kaushik resul t does not exclu de the possi bilit y of infec tion, since very low level s of infec tion and sampl ing varia bilit y may cause a false negat kaushik resul t. This test is highl y sensi tive and speci fic, but rare false posit kaushik and false negat kaushik resul ts may occur . Resul ts of this test shoul d be inter prete d in conju nctio n with clini taqueria and labor atory findi ngs. This test is used for clini taqueria purpo ses. It shoul d not be regar ded as inves tigat ional or for resea [facility]. This labor atory is certi fied under the Clini taqueria Labor atory Impro vemen t Amend ments of 1987 (CLIA ) as quali fied to perfo rm high compl exity clini taqueria labor atory testi ng. Test perfo rmed by [facility] [employer], AFINOS, d/b/a Gregg manning, [address], [place] [address] , Pradeep Stevens ra, DO, Labor atory [facility]. Not Available [facility] ([facility]) [address], [place], [address], 10/20/2024 10:07:21 Result Notes None recorded. Problems Name Problem SNOMED Code Status Onset Date Resolution Date Notes Provider Name and Address Organization Details Recorded Time Gastroesoph ageal reflux disease 803354204 Active Acid Reflux/G ERD, Problem Code: 530.81; Problem Code Type: ICD-9; Not Available [facility] 12:19:53 Fibromyosit is 21559782 Active Fibromya lgia, Problem Code: 729.1; Problem Code Type: ICD-9; Not Available [facility] 12:19:53 Type 2 diabetes mellitus without complicatio n 087375891 Active Diabetes , Type 2, Problem Code: 250.00; Problem Code Type: ICD-9; Not Available [facility] 12:19:53 Migraine 27696096 Active Migraine s, Problem Code Descript ion: 'Migrain es'; Not Available [facility] 12:19:54 Disorder of kidney and/or ureter 237095612 Active Kidney Problems , stones Problem Code: 593.9; Problem Code Type: ICD-9; Startdat e: '2007'; Not Available [facility] 12:19:54 Essential hypertensio n 39858424 Active High Blood Pressure , Problem Code Descript ion: 'High Blood Pressure '; Not Available [facility] 12:19:54 Acute vulvitis 66137670 Active 2024 NATHAN MCCARTHY [address], [place], [address] , [facility] 5 12:53:56 Vulval irritation 583082291 Active 2024 NATHAN MCCARTHY [address], [place], [address] , [facility] 14:29:46 Problem Notes None recorded. Procedures Surgical History Date Name Laterality Status Provider Name and Address Organization Details Recorded Time 024 Date of Last Mammogram completed [facility] 10/15/2024 15:50:06 022 Date of Last Colonoscopy completed [facility] 10/15/2024 15:50:37 020 Date of Last Pap Smear completed [facility] 10/15/2024 15:49:29 Laparoscopic cholecystectomy completed Not Available [facility] 08/26/2024 14:41:35 section completed Not Available [facility] 08/26/2024 14:41:35 breast biopsy and related procedures completed Not Available [facility] 08/27/19 14:41:35 endoscopy completed Not Available [place] [address] 08/26/2024 14:41:35 cosmetic surgery completed Not Available [facility] 08/26/2024 14:41:35 colonoscopy completed Not Available [facility] 08/26/2024 14:41:35 Imaging Results None recorded. Procedure Notes None recorded. Medical Equipment None Reported. Allergies Allergen ID Allergen Name Allergen Category Reaction Reaction Severity Criticality Documentation Date Start Date Code Code System Note Provider Name and Address Organization Details Recorded Time 025158 cefonicid monosodiu m medicatio n Not available Not available Not available 08/26/2024 07950 1 RxNorm Aller gyRea ction : 'pass ed out'; Not Available [facility] 12:12:23 326436 Levaquin medicatio n Not available Not available Not available 08/26/2024 36235 2 RxNorm NOTE: tendi nitis Aller gyRea ction : 'tend initi s'; Not Available [facility] 12:12:23 517423 Topamax medicatio n Not available Not available Not available 08/26/2024 93342 3 RxNorm Aller gyRea ction : 'loss of andra ntrat ion'; Not Available [facility] 5 12:12:24 226196 Iodine and/or iodine compound (substanc e) Not available Not available Not available Not available 08/26/2024 37606 6004 SNOMED Aller gyCod e: '7'; Aller gyNam e: 'IV DYE, IODIN E CONTA INING '; Aller gyCon ceptT ype: 'FDBA LLERG P'; Not Available [facility] 5 12:12:24 127796 Amoxil medicatio n Not available Not available Not available 08/26/202418804 9 RxNorm [facility] 5 15:48:15 113815 Product containin g penicilli n (product) medicatio n other Not available Not available 08/26/2024 73497 8001 SNOMED Aller gyCod e: '476' ; Aller gyNam e: 'PENI CILLI NS'; Aller gyCon ceptT ype: 'FDBA LLERG P'; Not Available [facility] 5 12:12:24 995254 Terazol 3 medicatio n Not available Not available Not available 08/26/202447965 9 RxNorm Aller gyRea ction : 'coul dnt see'; Pretty levy, [facility] 5 12:33:11 482796 Substance with sulfonami de structure and antibacte rial mechanism of action (substanc e) medicatio n Not available Not available Not available 08/26/2024 51869 8003 SNOMED Aller gyRea ction : 'Itch y Eyes' ; Aller gyCod e: '491' ; Aller gyNam e: 'SULF A (SULF ONAMI DE ANTIB IOTIC S)'; Aller gyCon ceptT ype: 'FDBA LLERG P'; Not Available [facility] 5 12:12:25 892253 erythromy nixon medicatio n Not available Not available Not available 08/26/2024 4053 RxNorm Aller gyRea ction : 'Rash / Hives , Swell ing, Diffi culty breat edward' ; Not Available [facility] 5 12:12:25 993588 amoxicill in trihydrat e medicatio n other Not available Not available 08/26/2024 25131 8 RxNorm Not Available [facility] 5 12:12:26 043600 metronida zole medicatio n Not available Not available Not available 08/26/2024 6922 RxNorm Hives , Sneez ing, Water y eyes Not Available [facility] 5 12:12:26 566885 Indocin medicatio n Not available Not available Not available 08/26/2024 41279 5 RxNorm Not Available [facility] 5 12:12:26 502197 diphenhyd ramine hydrochlo ride medicatio n other Not available Not available 08/26/2024 1362 RxNorm NOTE: MONOC ID - Phree annamaria 06/13 Not Available [facility] 5 12:12:26 525700 shellfish derived food,medi cation Not available Not available Not available 10/18/2024 16977 [facility] Pretty bosch [facility] 5 12:33:24 Medications Name Sig Start Date Stop Date Status Note LastModified by Organization Details LastModified Time doxycycline hyclate 100 mg capsule TAKE 1 CAPSULE BY MOUTH TWICE DAILY FOR 7 DAYS active Not Available Not Available No t Available Avapro 300 mg tablet Take 1 tablet every day by oral route. active Not Available Not Available No t Available fluconazole 150 mg tablet TAKE 1 TABLET BY MOUTH FOR ONE DOSE 10/18 completed Not Available Not Available Not Available valacyclovi r 1 gram tablet TAKE 1 TABLET BY MOUTH EVERY 8 HOURS NEEDED FOR COLD SORES active Not Available Not Available No t Available amlodipine 5 mg tablet Take 1 tablet every day by oral route. active Not Available Not Available No t Available valacyclovi r 500 mg tablet Take 1 tablet as needed by oral route. active Not Available Not Available No t Available nystatin-tr iamcinolone 100,000 unit/gram-0 .1 % topical ointment APPLY OINTMENT TOPICALLY TO AFFECTED AREA TWICE DAILY active Not Available Not Available No t Available lorazepam 0.5 mg tablet Take 2 tablets as needed by oral route. active Not Available Not Available No t Available gabapentin 100 mg capsule TAKE 1 CAPSULE BY MOUTH ONCE DAILY active Not Available Not Available No t Available nystatin 100,000 unit/gram topical powder APPLY POWDER TOPICALLY TO AFFECTED AREA TWICE DAILY active Not Available Not Available No t Available rosuvastati n 40 mg tablet Take 1 tablet every day by oral route. active Not Available Not Available No t Available meloxicam active Not Available Not Mallorie ilable Not Available omeprazole active Not Available Not Av ailable Not Available Jardiance 10 mg tablet Take 1 tablet every day by oral route. active Not Available Not Available No t Available metoprolol succinate ER 100 mg capsule sprinkle, ext. release 24 hr Take 1 capsule every day by oral route. active Not Available Not Available No t Available Vitals Date Recorded Body height Body mass index (BMI) Body weight Systolic And Diastolic Provider Name and Address Organization Details Last Updated DateTime 10/18/2024 149.86 cm 38.7 kg/m2 28400.3 g 118/82 mm[Hg] Pretty Hdz [facility] 10/18/2024 12:31:51 Social History Question Answer Notes LastModified by Organizat ion Details LastModified Time Tobacco Smoking Status Never Smoker Not Available [facility] 08/26/2024 15:33:59 What Is Your Relationship Status? [email or web address] Information not available 10/15/2024 Sex: Female Functional Status Question Answer Note LastModified by Organizat ion Details LastModified Time Do you use any illicit or recreational drugs? No Note: Information not available 08/26/2024 What is your level of alcohol consumption? 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 Family History Relationship Description Onset Age of this Age Resolved Age Notes LastModified by Organization Details LastModified Time Brother Mixed hypercholest erolemia and hypertriglyc eridemia Elevat ed Choles terol/ Trigly ceride s Not available 08/26/2024 15:24:51 Brother Myocardial infarction Myocar dial Infarc tion Not available 08/26/2024 15:24:51 Brother Hypertensive disorder High Blood Pressu re Not available 08/26/2024 15:24:52 Father Mixed hypercholest erolemia and hypertriglyc eridemia Elevat ed Choles terol/ Trigly ceride s Not available 08/26/2024 15:24:51 Father History taken NOS Other MELANO MA - Not available 08/26/2024 15:24:51 Father Hypertensive disorder High Blood Pressu re Not available 08/26/2024 15:24:52 Father Parkinson's disease Adelaida son's Diseas e Not available 08/26/2024 15:24:52 Father Heart disease Heart Diseas e Fa-byp ass Not available 08/26/2024 15:24:52 Father Diabetes mellitus Diabet es Not available 08/26/2024 15:24:52 Mother Mixed hypercholest erolemia and hypertriglyc eridemia Elevat ed Choles terol/ Trigly ceride s Not available 08/26/2024 15:24:51 Mother Myocardial infarction Myocar dial Infarc tion Not available 08/26/2024 15:24:51 Mother Hypertensive disorder High Blood Pressu re Not available 08/26/2024 15:24:52 Mother Heart disease Heart Diseas e Fa-byp ass Not available 08/26/2024 15:24:52 Unspecified Relation Cerebrovascu lar accident Stroke Relati ve: 'Aunt' ; Not available 08/26/2024 15:24:51 Paternal Grandmother Diabetes mellitus Diabet es Not available 08/26/2024 15:24:52 Paternal Grandmother Kidney disease Kidney Proble ms Not available 08/26/2024 15:24:52 Father Malignant melanoma bvoellinger Not available 09/27 15:52:16 Maternal Aunt Malignant tumor of cervix bvoellinger Not available 09/27 15:52:38 Medical History Condition Response Cancer- Genetic screening Rheumatology- Fibromyalgia/Chronic Pain Y GI- Reflux/Ulcers Y Neurology- Headaches/Migraines Y Cardiology- High Blood Pressure Y Endocrinology- Diabetes Y Urology-Other Y Gynecological History Statement/Question Response If Post Menopausal, Age at Menopause 1 Date of Last Colonoscopy 04/28/2021 Date of Last Mammogram 09/09/2023 Date of Last HPV Test 12/16/2019 Date of Last Pap Smear 12/16/2019 Age at Menarche 13 Current Control Method None Date of Last Cholesterol Screening 04/28 Date of Last Bone Density 2018 DEXA WNL Obstetrics History GPAL:G 1 P 1 0 0 2 Type Value Multiple Births 0 Full Term 1 Induced 0 Spontaneous 0 Premature 0 Living 2 Ectopics 0 Total 1 Immunizations Vaccine Type Date Status Note Provider Nam e and Address Organization Details Recorded Time Influenza, MDCK, quadrivalent, PF 9 completed Prettyosbaldo Hudsoner null, [place] [facility] 10/18/2024 12:27:26 Influenza, MDCK, quadrivalent, preservative 9 completed Pretty Hudsoner null, [place] [facility] 10/18/2024 12:27:26 zoster recombinant 0 completed Prettyosbaldo Hudsoner null, [place] [facility] 10/18/2024 12:27:26 zoster recombinant 9 completed Prettyosbaldo Hudsoner null, [place] [facility] 10/18/2024 12:27:26 COVID-19, mRNA, LNP-S, PF, 100 mcg/0.5mL dose or 50 mcg/0.25mL dose 1 completed Pretty Hudsoner null, [place] [facility] 10/18/2024 12:27:26 COVID-19, mRNA, LNP-S, PF, 100 mcg/0.5mL dose or 50 mcg/0.25mL dose 1 completed Prettyosbaldo Hudsoner null, [place] [facility] 10/18/2024 12:27:26 COVID-19, mRNA, LNP-S, PF, 100 mcg/0.5mL dose or 50 mcg/0.25mL dose 2 completed Pretty Voellinger null, [place] [facility] 10/18/2024 12:27:26 COVID-19, mRNA, LNP-S, PF, 100 mcg/0.5mL dose or 50 mcg/0.25mL dose 1 completed Pretty Voellinger null, [place] [facility] 10/18/2024 12:27:26 Pneumococcal conjugate PCV20, polysaccharide [id number] conjugate, adjuvant, PF 4 completed Pretty Voellinger null, [place] [facility] 10/18/2024 12:27:26 COVID-19, mRNA, LNP-S, bivalent, PF, 50 mcg/0.5 mL or 25mcg/0.25 mL dose 2 completed Pretty Vo[place]er null[place] [facility] 10/18/2024 12:27:26 COVID-19, mRNA, LNP-S, PF, 50 mcg/0.5 mL 3 completed Pretty Voellinger null[place] [facility] 10/18/2024 12:27:26 COVID-19, mRNA, LNP-S, PF, 50 mcg/0.5 mL 4 completed Pretty Vo[place]er null[place] [facility] 10/18/2024 12:27:26 Pneumococcal conjugate PCV 13 1 completed Pretty [place] null[place] [facility] 10/18/2024 12:27:26 zoster live 6 completed Pretty Vo[place] null[place] [facility] 10/18/2024 12:27:26 Influenza, split virus, quadrivalent, PF 6 completed Pretty Vo[place] null[place] [facility] 10/18/2024 12:27:26 Past Encounters Encounter ID Performer Location Encounter Start Date Encounter Closed Date Diagnosis/Indication Diagnosis SNOMED-CT Code Diagnosis ICD10 Code Diagnosis Note [id number] KATHERIN BRICE MD [id number] [place] [address] [place] [address] 10/18/2024 12:17:17 10/18/2024 12:57:09 Acute vulvitis 74435762 N76.2 Infection screening 2437 27293 Z11.3 Health Concerns Section Related Observation LastModified by Organization Detai ls LastModified Time None Recorded Concern Status LastModified by Organization Details LastModified Time None Recorded Advance Directives Directive None Recorded Payers Insurance Date Sequence Insurance Name Policy Number Policy [place] Covered Member ID [place] Member ID Guarantor Name 10/19/2024 1 [facility] (MEDICARE REPLACEMENT/A DVANTAGE - PPO) [id number] Anjali Betts [id number] Anjali Otoole Roxane Notes Date Note Type Note Provider Name and Address Organization Details Recorded Time 10/18/2024 text/html The patient is a 69-year-old female presenting with vaginal itching and a foul odor. The symptoms began recently, with the patient noting a persistent itch and an unusual odor that she describes as foul but not fish-like. The patient reports right-sided vulvar tenderness, which she describes as a sensation of ripped skin. The tenderness is localized and causes discomfort when pressure is applied. 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 NATHAN [facility] [address], [place], [address], [place] [facility] 10/18/2024 14:29:16 OBGyn Episode No OBEpisode recorded.
--- OUTSIDE RECORDS SUMMARY | 2024-11-19 14:06 | XMS_ITS | Continuity of Care Document ---
Author Organization [facility] Address [address] [place] [address] Phone Care Team Providers Care Party Planner Name Role Phone Connie Leger PA-C Unavailable Unavailable Allergies, Adverse Reactions, Alerts Substance Reaction Status Criticality indomethacin Active No Information amoxicillin Unknown Active No Information sulfanilamide Unknown Active No Information erythromycin base Unknown Active No Informa tion Medications Medication Instructions Dosage Effective Dates (start - stop) Status Comments OMEPRAZOLE (unknown strength) Not Available - Active AVAPRO (unknown strength) Not Available - Active TERAZOSIN HCL (unknown strength) Not Available - Active MELOXICAM (unknown strength) Not Available - Active CRESTOR (unknown strength) Not Available - Active HYDROXYCHLOROQUINE SULFATE (unknown strength) Not Available - Active Vitamin C 500 mg tablet - Active Multiple Vitamins tablet - Activ e calcium 500 mg tablet - Active Procedures Procedure Date OFFICE/OUTPATIENT VISIT [facility] Advance Directives Directive Yes / No Effective [...] Providers Copied on Encounter OFFICE/OUTPA TIENT VISIT [facility], [address], [place], [address], [place] tel:[phone] [facility] Degenerative tear of medial meniscus of left kneeLower leg pain [address], [place], [place], [id number] . tel: [phone] Referring Provider: Marquise Menendez, [address], [place], [address]. [phone] Family History Family Member Type Diagnosis Age [...]
[2024-11-19 14:16] VITALS: BP 143/85; PULSE 63; RESP 18; TEMP 36.2; O2SAT 98
--- NOTE | 2024-11-19 15:02 | ED_ITS ---
HPI - URI/Sore Throat General Chief Complaint: Upper Respiratory Infection Stated Complaint: severe coughing Time Seen by Provider: 11/19/24 14:20 Source: patient and RN notes reviewed Mode of arrival: ambulatory Limitations: no limitations History of Present Illness HPI Narrative: 69-year-old female presents Express Care complaining of paroxysmal cough, postnasal drip, congestion for proximally 3 weeks. Patient reports she was seen by her PCP with so she likely had a viral illness however they gave her doxycycline for possible sinus infection. Patient said she did not feel any better with doxycycline and continues to have persistent symptoms. Patient states her cough is much worse she is having severe coughing spells that are making her very nauseous and she vomits. Patient reports copious postnasal drainage that is mucopurulent times. Patient denies any chest pain, shortness of breath, fevers, body aches, chills, abdominal pain, urinary symptoms, sore throat, ear pain, or any other symptoms. Patient has also been using benzonatate tablets and albuterol inhaler to help with her symptoms without relief. Related Data Allergies Allergy/AdvReac Type Severity Reaction Status Date / Time metronidazole Allergy Intermediate Hives Verified 11/19/24 14:16 Penicillins Allergy Mild RASH Verified 11/19/24 14:16 amoxicillin Allergy Unknown Unknown Verified 11/19/24 14:16 cefonicid Allergy Unknown Unknown Verified 11/19/24 14:16 celecoxib Allergy Unknown Unknown Verified 11/19/24 14:16 clindamycin Allergy Unknown Unknown Verified 11/19/24 14:16 erythromycin base Allergy Unknown Unknown Verified 11/19/24 14:16 indomethacin Allergy Unknown Unknown Verified 11/19/24 14:16 Iodinated Contrast Media Allergy Unknown Unknown Verified 11/19/24 14:16 iodine Allergy Unknown Unknown Verified 11/19/24 14:16 Sulfa (Sulfonamide Allergy Unknown Unknown Verified 11/19/24 14:16 Antibiotics) sulfanilamide Allergy Unknown Unknown Verified 11/19/24 14:16 topiramate Allergy Unknown Confusion Verified 11/19/24 14:16 ciprofloxacin (From Cipro) AdvReac Severe tendonopath Verified 11/19/24 14:16 y levofloxacin AdvReac Severe tendonopath Verified 11/19/24 14:16 y Review of Systems Review of Systems: CONSTITUTIONAL: Denies fever, chills, body aches, or sweats. EYES: Denies visual changes, redness, or discharge. ENT: Denies rhinorrhea, sore throat, or otalgia. Positive for congestion and postnasal drip. CARDIOVASCULAR: Denies chest pain, palpitations, or edema. RESPIRATORY: Positive for cough. Negative for dyspnea or wheezing. GASTROINTESTINAL: Denies abdominal pain, nausea, vomiting, or diarrhea. Positi ve for nausea and vomiting. GENITOURINARY: Denies dysuria or hematuria. SKIN: Denies rash or itching. MUSCULOSKELETAL: Denies back pain, joint pain, or myalgia. NEUROLOGIC: Denies headache, numbness, or weakness. PSYCHIATRIC: Denies anxiety or depression. All other systems reviewed are negative, except as documented in HPI. [facility] Past Medical History Medical History COVID BMI 39.0-39.9,adult Myocarditis Diabetes Arthritis of both knees BMI 40.0-44.9, adult Fibromyalgia Body mass index (BMI) of 40.1 to 44.9 in adult Morbid (severe) obesity due to excess calories Anxiety Essential hypertension Fibromyalgia Gastroesophageal reflux disease Reactive airway disease Type 2 diabetes mellitus without complication Surgical History Surgical History H/O breast augmentation H/O knee surgery Family History Family History Mother Family history of elevated blood lipids Family history of diabetes mellitus in first degree relative Family history of heart disease in male family member before age 55 Family history of arthritis Acute myocardial infarction Hypertension Father Family history of malignant melanoma Family history of heart disease in male family member before age 55 Family history of Parkinson's disease Hypertension Heart disease Sibling Acute myocardial infarction Diabetes mellitus Hypertension Grandparent Alcoholism Hypertension Social History Social History Smoking status: Never smoker Second hand tobacco smoke exposure: Yes Alcohol intake: current Alcohol use details: seldom Substance use: never Substance use type: does not use Do You Feel Safe in your Home?: Yes Lack of Transportation: No Lack of Food: Never True Current Housing: I Have Housing Concerned About Future Housing: No Difficulty Paying Gas/Electric Bills: No Difficulty Paying for Meds: No Currently Unemployed: No Education: High School Diploma/GED Difficulty w/ Childcare or Family Care: No Living arrangements: with family Occupation/Education: 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 There is no relevant family history pertinent to the patient complaint. Exam Narrative: GENERAL: This is a well-nourished, well-developed adult, in no apparent di stress. They are non ill-appearing, nontoxic appearing. HEAD: normocephalic, atraumatic. EYES: Sclera clear/white. Conjunctiva normal. Vision is grossly intact. Extraocular movements intact EARS: External ears normal, auditory canals clear and without drainage, TMs normal without perforation. Hearing grossly intact. NOSE: External nose normal with no obvious nasal discharge, nasal turbinates erythematous, no rhinorrhea. Maxillary Sinus tenderness to palpation. THROAT: Mucous membranes moist, posterior pharynx edematous, without erythema, no exudate. Uvula midline. Postnasal drip present. NECK: Neck supple, non-tender without lymphadenopathy, masses or thyromegaly. CARDIOVASCULAR: Regular rate and rhythm without murmurs, gallops, or rubs. RESPIRATORY: Clear to auscultation. Breath sounds equal bilaterally. No wheezes, rales, or rhonchi. SKIN: warm, Dry, intact with no suspicious lesions or rash, good texture and turgor. NEURO: awake, alert, and oriented to person, place and time. There were no obvious focal neurologic abnormalities. EXTREMITIES: No joint tenderness, effusion, or edema noted. BACK: Nontender without deformity. No CVA tenderness. Course Course Emergency Course: Portions of this record may have been created with voice recognition software Level of Care: Express Care Visit Vital Signs Vital signs: Vital Signs Temperature 97.2 F L 11/19/24 14:16 Pulse Rate 63 11/19/24 14:16 Respiratory Rate 18 11/19/24 14:16 Blood Pressure 143/85 H 11/19/24 14:16 Pulse Oximetry 98 11/19/24 14:16 Oxygen Delivery Room Air 11/19/24 14:16 Temperature 97.2 F L 11/19/24 14:16 Pulse Rate 63 11/19/24 14:16 Respiratory Rate 18 11/19/24 14:16 Blood Pressure 143/85 H 11/19/24 14:16 Pulse Oximetry 98 11/19/24 14:16 Oxygen Delivery Room Air 11/19/24 14:16 Reviewed MDM - URI/Sore Throat MDM Narrative Medical decision making narrative: Given patient's persistent symptoms is likely she still has a sinus infection. Patient has numerous drug allergies. However patient states that she tolerates cefdinir. Will treat her with cefdinir. Given severity of symptoms and cough also prescribe her a course of Medrol Dosepak. Advised patient to continue usin g benzonatate as needed for cough, and albuterol inhaler as needed for shortness of breath or wheezing. Discussed physical exam findings. Advised supportive measures and signs/symptoms to go to the ER. Pt is appropriate for outpt treatment and f/u. Differential Diagnosis Differential diagnosis: Likely upper respiratory infection, sinusitis, viral infection and bronchitis Critical Care Time Critical Care Time Critical Care Time: No Discharge Plan Discharge Clinical Impression: Sinusitis Qualifiers: Sinusitis location: unspecified location Chronicity: subacute Qualified Code(s): J01.90 - Acute sinusitis, unspecified Patient Disposition: Home Condition: Stable Instructions: Antibiotic Form, Sinusitis (ED) Additional Instructions: Take the antibiotics as directed and complete the course even if you start to feel better. Take the Medrol Dosepak as directed. You may use a Neti pot saline rinse 3 times a day with lukewarm distilled water Continue to take Tylenol or Motrin for pain. Follow instructions on the bottle. You may use benzonatate tablets as needed for cough, follow instructions on your prescription. Use a humidifier or vaporizer at night. Drink plenty of water. 8-10 glasses per day. Use flonase 2 times per day for 5 days then as needed Take mucinex 2 times per day and be sure to take with 8oz of water. Follow up with Primary provider in 3-5 days Please go to the ER if he develops any difficulty breathing, worsening symptoms, or any other concerns Patient Language: Ecuadorean Prescriptions: New cefdinir 300 mg capsule 300 mg PO Q12H 7 Days Qty: 14 0RF methylprednisolone 4 mg tablets,dose pack See Rx Instructions .ROUTE .COMPLEX Qty: 21 0RF Rx Instructions: for 6 days No Action (DME) lancets [Accu-Chek Softclix Lancets] Mis See Rx Instructions .ROUTE .MEDSUPPLY Qty: 100 2RF Rx Instructions: Check glucose bid for diabetes fluticasone propionate 50 mcg/actuation spray,suspension 1 spray intranasal BID Qty: 48 2RF Rx Instructions: administer into each nostril 3mo supply (DME) blood-glucose meter [Accu-Chek Emilee Plus Meter] Mis See Rx Instructions .ROUTE .MEDSUPPLY Qty: 1 0RF Rx Instructions: QID amlodipine 5 mg tablet See Rx Instructions .ROUTE .COMPLEX Qty: 90 3RF Dose Instruction: TAKE 1 TABLET BY MOUTH DAILY Rx Instructions: TAKE 1 TABLET BY MOUTH DAILY Jardiance 10 mg tablet 10 mg PO DAILY Qty: 90 1RF rosuvastatin [Crestor] 40 mg tablet 40 mg PO DAILY Qty: 90 1RF Rx Instructions: one week supply irbesartan 300 mg tablet 300 mg PO DAILY Qty: 90 1RF (DME) blood-glucose meter [Accu-Chek Guide Glucose Meter] [facility] [place] Rx Instructions .Route Qty: 1 0RF Rx Instructions: blood glucose monitoring BID (DME) Accu-Chek Guide test strips Strip See Rx Instructions .Route Qty: 100 2RF Rx Instructions: As directed for blood glucose monitoring bid metoprolol succinate 100 mg tablet extended release 24 hr 200 mg PO DAILY Qty: 90 1RF meloxicam 7.5 mg tablet 7.5 mg PO BID Qty: 180 0RF omeprazole 20 mg capsule,delayed release(DR/EC) 20 mg PO BID Qty: 180 0RF valacyclovir [Valtrex] 1 gram tablet 1,000 mg PO Q8H PRN (Reason: cold sores) Qty: 21 0RF gabapentin 100 mg capsule 200 mg PO DAILY Qty: 180 2RF ipratropium bromide 21 mcg (0.03 %) spray,non-aerosol 2 spray intranasal .qd-tid Qty: 30 3RF Rx Instructions: administer into each nostril. Aim back/up/out benzonatate 200 mg capsule 200 mg PO TID 10 Days Qty: 30 0RF albuterol sulfate [Ventolin HFA] 90 mcg/actuation HFA aerosol inhaler 2 inh inhalation Q4H PRN (Reason: shortness of breath or wheezing) Qty: 6.7 0RF Follow-up/Referrals: Marquise Schwab MD [Primary Care Provider] - Time of Disposition: 14:29
== END 2024-11-19 14:31 | disposition home or self-care (01) ==
PROVIDERS: PCP Family Medicine
DX: J01.90 Acute sinusitis, unspecified (principal); E11.9 Type 2 diabetes mellitus without complications; Z79.84 Long term (current) use of oral hypoglycemic drugs; M17.0 Bilateral primary osteoarthritis of knee; M79.7 Fibromyalgia; I10 Essential (primary) hypertension; E66.01 Morbid (severe) obesity due to excess calories; Z68.38 Body mass index [BMI] 38.0-38.9, adult; K21.9 Gastro-esophageal reflux disease without esophagitis; J45.909 Unspecified asthma, uncomplicated; Z86.16 Personal history of COVID-19
CPT/HCPCS: 99213; G0463

== ENCOUNTER 2025-03-29 12:55 | Outpatient (CLI) | payer MEDICARE, SELFPAY ==
--- NOTE | ~2025-03-29 | US_ITS ---
EXAMINATION: US pelvic complete w TV, 03/29/2025 12:59 [employer]PER[employer] HISTORY: Postmenopausal bleeding Comparison: None Technique: Jay-scale and color Doppler images were obtained. Findings: Uterus: Uterus anteverted 6.8 x 3.4 cm, anterior fundal fibroid 6 x 7 mm. . Endometrium 4 mm. Right Ovary:Right ovary not identified. Left Ovary: Left ovary not identified. Free Fluid: None Impression: No etiology to explain postmenopausal bleeding Reviewed, dictated and finalized at location P. S SUPERVISOR Impression: No etiology to explain postmenopausal bleeding
== END 2025-03-29 12:56 | disposition home or self-care (01) ==
LOC: MICIMG 12:55
PROVIDERS: PCP Family Medicine; Visit Provider Obstetrics & Gynecology
DX: N95.0 Postmenopausal bleeding (principal)
CPT/HCPCS: 76830; 76856